=== PATIENT | female | born 1975 | race Hispanic/Latino ===

== ENCOUNTER 2017-09-29 12:54 | Day surgery (SDC) | payer BC ==
[~2017-09-29 12:54] MED LIST: Acetaminophen/HYDROcodone 325-5 MG Tab PO PRN; Bupivacaine 0.25% 10 ML SDV INJECT ONE; Bupivacaine 0.25% 10 ML SDV ONE; Lactated Ringers 1,000 ML IV SCH; ceFAZolin 2 GM in Premix Bag 1 BAG IV ONE
--- NOTE | 2017-09-29 13:38 | PCM.PREANE ---
Preanesthetic Assessment - Anesthesia/Transfusion/Family Hx Anesthesia History: Prior Anesthesia Without Reaction Other Type of Anesthesia Reaction Comment: Denies any known problem with anesthesia in the past Family History of Anesthesia Reaction: No Transfusion History: No Prior Transfusion(s) - Review of Systems General: No Symptoms Pulmonary: No Symptoms Cardiovascular: No Symptoms Gastrointestinal: No Symptoms Neurological: No Symptoms Other: Reports: None - Physical Assessment NPO Status Date: 09/28/17 Height: 1.68 m Weight: 73.482 kg ASA Class: 2 Mental Status: Alert & Oriented x3 Airway Class: Mallampati = 1 Dentition: Reports: Normal Dentition ROM/Head Extension: Full Lungs: Clear to Auscultation, Normal Respiratory Effort Cardiovascular: Regular Rate, Regular Rhythm - Lab Values: Laboratory Last Values Urine HCG, Qual NEGATIVE (NEGATIVE) 09/29/17 12:56 - Allergies Allergies/Adverse Reactions: Allergies Allergy/AdvReac Type Severity Reaction Status Date / Time ibuprofen Allergy Stomach Verified 09/24/17 09:50 Upset - Acknowledgements Anesthesia Type Planned: General Anesthesia, MAC (PMH: htn) Pt an Appropriate Candidate for the Planned Anesthesia: Yes Alternatives and Risks of Anesthesia Discussed w Pt/Guardian: Yes Pt/Guardian Understands and Agrees with Anesthesia Plan: Yes PreAnesthesia Questionnaire HEENT History: Reports: Other (See Below) Other HEENT History: wears glasses/contacts Cardiovascular History: Reports: Hypertension Other Cardiovascular History: on hctz and metopralol Respiratory History: Reports: None Gastrointestinal History: Reports: None Genitourinary History: Reports: None 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: Musculoskeletal History: Reports: None Neurological History: Reports: Other (See Below) Other Neuro History: Occasional headaches Psychiatric History: Reports: Anxiety, Other (See Below) Endocrine/Metabolic History: Reports: None Hematologic History: Reports: None Immunologic History: Reports: None Oncologic (Cancer) History: Reports: None Dermatologic History: Reports: None - Past Surgical History Head Surgeries/Procedures: Reports: None GI Surgical History: Reports: Colonoscopy, Other (See Below) Other GI Surgeries/Procedures: hemorroidectomy Female Surgical History: Reports: Breast Reduction, Tubal Ligation Other Female Surgeries/Procedures: breast reduction, breast revision Neurological Surgical History: Reports: C-Spine Other Neurological Surgeries/Procedures: neck fusion Musculoskeletal Surgical History: Reports: Other (See Below) Other Musculoskeletal Surgeries/Procedures:: Right Bunionectomy - SUBSTANCE USE Smoking Status *Q: Never Smoker Tobacco Use Within Last Twelve Months: No Second Hand Smoke Exposure: No Recreational Drug Use History: No - HOME MEDS Home Medications: Home Meds Hydrochlorothiazide 25 mg PO DAILY 09/20/15 [History] Metoprolol Tartrate 100 mg PO DAILY 09/20/15 [History] Calcium Carbonate/Vitamin D3 [Calcium 600 + Vit D Tablet] 1 tab PO DAILY [History] Cholecalciferol (Vitamin D3) [Vitamin D3] 1,000 mg PO DAILY 09/24/17 [History] Potassium Chloride 20 meq PO DAILY 09/24/17 [History] - CURRENT (IN HOUSE) MEDS Current Meds: Current Medications Hydrocodone Bitart/Acetaminophen ([place] 325-5 Mg) 1 tab PO Q4H PRN PRN Reason: Pain Lactated Ringer's (Ringers, Lactated) 1,000 mls @ 125 mls/hr IV ASDIRECTED [facility] Last Admin: 09/29/17 13:29 Dose: 125 mls/hr Discontinued Medications Bupivacaine HCl (Sensorcaine-Mpf 0.25%) 20 ml INJECT ONETIME ONE Stop: 09/28/17 12:40 Bupivacaine HCl (Sensorcaine-Mpf 0.25%) Confirm Administered Dose 20 ml .ROUTE .STK-MED ONE Stop: 09/29/17 10:58 Cefazolin Sodium/Dextrose 2 gm (/ Premix) 50 mls @ 100 mls/hr IV ONETIME ONE Stop: 09/29/17 12:29
[2017-09-29] MEDS ORDERED: fentaNYL 100 MCG/2 ML SDV ONE ×2 (15:07→15:58)
[2017-09-29] MEDS ORDERED: Propofol 200 MG/20 ML SDV ONE (15:07)
[2017-09-29] MEDS ORDERED: diphenhydrAMINE 50 MG/ML SDV ONE (15:08)
[2017-09-29] MEDS ORDERED: Lidocaine 2% 5 ML SDV ONE (15:08)
[2017-09-29] MEDS ORDERED: Midazolam 1 MG/ML 2 ML SDV ONE (15:08)
[2017-09-29] MEDS ORDERED: Ondansetron 4 MG/2 ML SDV ONE (15:08)
[2017-09-29] MEDS ORDERED: Phenylephrine/Normal Saline 100 MCG/ML 10 ML Syringe ONE (15:44)
[2017-09-29] MEDS ORDERED: Bupivacaine 0.25% 10 ML SDV ONE (15:52)
[2017-09-29] MEDS ORDERED: Triamcinolone Acetonide 40 MG/ML 1 ML MDV ONE (16:33)
[2017-09-29] MEDS: fentaNYL 100 MCG/2 ML SDV IVPUSH PRN ×4 (17:12→17:35)
--- NOTE | 2017-09-29 17:39 | PCM.POSTAN ---
POST ANESTHESIA ASSESSMENT - MENTAL STATUS Mental Status: Alert, Oriented - VITAL SIGNS Pulse Rate: 78 SaO2: 98 Resp Rate: 14 Blood Pressure: 103/65 - RESPIRATORY Respiratory Status: Respiratory Rate WNL, Airway Patent, O2 Saturation Stable - CARDIOVASCULAR CV Status: Pulse Rate WNL, Blood Pressure Stable - GASTROINTESTINAL GI Status: No Symptoms - PAIN Pain Score: 6 - POST OP HYDRATION Hydration Status: Adequate & Stable
[2017-09-29] MEDS ORDERED: HYDROmorphone 1 MG/ML Syringe IVPUSH ONE (18:46)
[2017-09-29 19:46] VITALS: BP 117/50
--- NOTE | 2017-09-29 21:25 | PCM.OPNOTE ---
- General Post-Op/Procedure Note Date of Surgery/Procedure: 09/29/17 Operative Procedure(s): bilateral breast scar revisions - excision of keloid scars with intermediate closure of 30cm total lenght. injection of left neck keloid with 0.5cc of kenalog 40. Pre Op Diagnosis: keloid breast and neck scars Post-Op Diagnosis: Same Anesthesia Technique: General LMA, Local Primary Surgeon: Abbi Hodge [employer] Electrical Person: Oly Vazquez Complications: None Condition: Good Free Text/Narrative:: Intake & Output 09/29/17 09/29/17 09/29/17 07:59 15:59 23:59 Intake Total 1600 Balance 1600
--- NOTE | 2017-10-04 17:02 | OR ---
SURGEON: ABBI HODGE MD DATE OF PROCEDURE: 09/29/2017 PREOPERATIVE DIAGNOSES: 1. Bilateral breasts keloid scars. 2. Left neck keloid scar. POSTOPERATIVE DIAGNOSES: 1. Bilateral breasts keloid scars. 2. Left neck keloid scar. PROCEDURES: 1. Bilateral breast scar revisions with excision of keloid scars and intermediate closure of 30 cm total length. 2. Injection of left neck keloid with 0.5 mL of Kenalog 40. PRIMARY SURGEON: Abbi Hodge MD. ENVIRONMENTAL PROGRAMS SPECIALIST: JORGE Madera. REASON ENVIRONMENTAL PROGRAMS SPECIALIST WAS NECESSARY: Reason for senior agricultural assistant is retraction and closure assistance. ANESTHESIA: General LMA. INDICATIONS: Ms. Dias is a 41-year-old female seen today in evaluation for refractory keloid scars. We have previously excised these and injected three times with Kenalog. Unfortunately, she re-developed the keloid and also has a keloid of the left neck from her cervical fusion. Risks and benefits of radiation versus repeat excision were discussed. She did meet with our radiation oncologist and discussed radiation with him as well. She would like to excise the breast scars and proceed with subsequent radiation. In addition, in the left neck area, she would like to inject this today. She does have symptom improvement initially with injection and would like to minimize cutting this out and minimize radiation to the neck area. I do understand this, and we will proceed with the procedure. PROCEDURE IN DETAIL: After informed consent was obtained and placed on the chart, the patient was brought to the operating theater and laid in a supine position. After adequate local general LMA anesthesia was obtained, the area was prepped and draped and a time-out was completed to confirm side and site. The area was prepped and draped, and then attention was paid to infiltration of local anesthesia. Attention was then paid to excision of the keloid scars using a #15 blade through the skin and subcutaneous tissues. The Bovie was then used for meticulous hemostasis, and the skin was re-approximated using deep 3-0 STRATAFIX Monocryl sutures and a running 4-0 subcuticular for the skin. Once all the keloids had been excised and meticulously hemostased, the lower part of the breast incision was dressed with the Prineo wound care closure system. The nipple-areolar complex was dressed with Steri-Strips. The patient tolerated this well and the wounds were dressed with fluffs, Kerlix, gauze, and tape. The patient tolerated this well, and all counts of needles were correct at the end of the case. FOLLOWUP INSTRUCTIONS: The patient will see us in 10-14 days or sooner if any problems, questions, or concerns. KENDRICK WRIGHT /[id number]
== END 2017-09-29 19:25 | disposition home or self-care (01) ==
LOC: MW.SDS 12:54 → MW.ICU 18:16 → MW.SDS 19:25
PROVIDERS: ATTEND Plastic Surgery
DX: L91.0 Hypertrophic scar (principal); Z88.8 Allergy status to other drugs, medicaments and biological substances
CPT/HCPCS: 11406; 11900; 12036; 81025; 88302; A9270; J1170; J1200; J2250; J2405; J3010; J3301; J7120; 00400; J2704

== ENCOUNTER 2020-04-24 07:36 | Day surgery (SDC) | payer BC ==
[~2020-04-24 07:36] MED LIST changes: -Acetaminophen/HYDROcodone 325-5 MG Tab PO PRN; -Bupivacaine 0.25% 10 ML SDV INJECT ONE; -Bupivacaine 0.25% 10 ML SDV ONE; +Lidocaine 2% 5 ML SDV ONE; +Propofol 200 MG/20 ML SDV ONE; -ceFAZolin 2 GM in Premix Bag 1 BAG IV ONE; +fentaNYL 100 MCG/2 ML SDV ONE
--- NOTE | 2020-04-24 08:24 | PCM.PREANE ---
Preanesthetic Assessment - Anesthesia/Transfusion/Family Hx Anesthesia History: Prior Anesthesia Without Reaction Other Type of Anesthesia Reaction Comment: Denies any known problem with anesthesia in the past Family History of Anesthesia Reaction: No Transfusion History: No Prior Transfusion(s) - Review of Systems General: No Symptoms Pulmonary: No Symptoms Cardiovascular: No Symptoms Neurological: No Symptoms Other: Reports: None - Physical Assessment NPO Status Date: 04/23/20 Vital Signs: Last Vital Signs Temp 97.9 F 04/24/20 07:50 Pulse 93 04/24/20 07:50 Resp 16 04/24/20 07:50 BP 108/69 04/24/20 07:50 Pulse Ox 94 L 04/24/20 07:50 Height: 5 ft 6 in Weight: 74.389 kg ASA Class: 2 Mental Status: Alert & Oriented x3 Airway Class: Mallampati = 2 Dentition: Reports: Normal Dentition ROM/Head Extension: Full Lungs: Clear to Auscultation, Normal Respiratory Effort Cardiovascular: Regular Rate, Regular Rhythm - Lab Values: Laboratory Last Values Urine HCG, Qual NEGATIVE (NEGATIVE) 04/24/20 06:55 - Allergies Allergies/Adverse Reactions: Allergies Allergy/AdvReac Type Severity Reaction Status Date / Time adhesive tape Allergy Blisters Verified 04/18/20 15:38 ibuprofen Allergy Abdominal Verified 04/18/20 15:37 Pain - Blood Blood Available: No - Anesthesia Plan Pre-Op Medication Ordered: None - Acknowledgements Anesthesia Type Planned: General Anesthesia Pt an Appropriate Candidate for the Planned Anesthesia: Yes Alternatives and Risks of Anesthesia Discussed w Pt/Guardian: Yes Pt/Guardian Understands and Agrees with Anesthesia Plan: Yes Additional Comments: PMH: htn, anxiet-no xanax today PLAN: tiva PreAnesthesia Questionnaire HEENT History: Reports: Other (See Below) Other HEENT History: wears glasses/contacts Cardiovascular History: Reports: Hypertension, Other (See Below) Other Cardiovascular History: recent complaints of "chest pIns" - had Holter monitor and was told it was "OK" Respiratory History: Reports: None Gastrointestinal History: Reports: None, Hemorrhoids Genitourinary History: Reports: None 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: Musculoskeletal History: Reports: Neck Pain, Chronic Neurological History: Reports: Other (See Below) Other Neuro History: Occasional headaches Psychiatric History: Reports: Anxiety, PTSD, Other (See Below) Other Psychiatric History: hx of night terrors Endocrine/Metabolic History: Reports: None Hematologic History: Reports: None, Iron Deficiency Immunologic History: Reports: None Oncologic (Cancer) History: Reports: None Dermatologic History: Reports: None - Past Surgical History Head Surgeries/Procedures: Reports: None HEENT Surgical History: Reports: Other (See Below) Other HEENT Surgeries/Procedures: has 1 upper dental implant GI Surgical History: Reports: Colonoscopy, Other (See Below) Other GI Surgeries/Procedures: hemorroidectomy Female Surgical History: Reports: Breast Reduction, Tubal Ligation Other Female Surgeries/Procedures: breast reduction, breast revision Neurological Surgical History: Reports: C-Spine Other Neurological Surgeries/Procedures: neck fusion- (C2-C6) Musculoskeletal Surgical History: Reports: Other (See Below) Other Musculoskeletal Surgeries/Procedures:: Right Bunionectomy - SUBSTANCE USE Smoking Status *Q: Never Smoker Recreational Drug Use History: No - HOME MEDS Home Medications: Home Meds Metoprolol Tartrate 100 mg PO QAM 09/20/15 [History] ALPRAZolam [Xanax] 1 mg PO BEDTIME 04/18/20 [History] Calcium Carbonate/Vitamin D3 [Calcium 600 + Vit D 400 Softgl] 1 cap PO DAILY 04/18/20 [History] Eszopiclone [Lunesta] 1 mg PO BEDTIME 04/18/20 [History] Iron 65 mg PO DAILY 04/18/20 [History] Prazosin HCl [Prazosin] 2 mg PO BEDTIME 04/18/20 [History] - CURRENT (IN HOUSE) MEDS Current Meds: Current Medications Lactated Ringer's (Ringers, Lactated) 1,000 mls @ 125 mls/hr IV ASDIRECTED [facility] Last Admin: 04/24/20 08:23 Dose: 125 mls/hr Documented by: Discontinued Medications Fentanyl (Sublimaze) Confirm Administered Dose 100 mcg .ROUTE .STK-MED ONE Stop: 04/24/20 07:09 Lidocaine (Xylocaine-Mpf 2%) Confirm Administered Dose 5 ml .ROUTE .STK-MED ONE Stop: 04/24/20 07:08 Propofol (Diprivan 20 Ml) Confirm Administered Dose 400 mg .ROUTE .STK-MED ONE Stop: 04/24/20 07:09
--- NOTE | 2020-04-24 09:39 | PCM.OPNOTE ---
- General Post-Op/Procedure Note Date of Surgery/Procedure: 04/24/20 Operative Procedure(s): colonoscopy w bx Findings: see [id number] Pre Op Diagnosis: change in bowel habit and hemorrhoid pain Post-Op Diagnosis: Same Anesthesia Technique: Moderate Sedation Primary Surgeon: Duncan Ulrich Pathology: polyp bx at 60cm and 15 cm Complications: None Condition: Good
[2020-04-24 09:55] VITALS: BP 111/74; PULSE 66
--- NOTE | 2020-04-24 13:11 | OR ---
SURGEON: Duncan Ulrich MD DATE OF PROCEDURE: 04/24/2020 PREOPERATIVE DIAGNOSES: Change in bowel habit, increased diarrhea, and hemorrhoidal pain. PROCEDURE PERFORMED: Colonoscopy with biopsy. DESCRIPTION OF PROCEDURE: The patient was taken to the endoscopy room. A time out was called, patient identified, and procedure identified. Diprivan was then administrated. Patient went from awake to sleep, hearing doctor talking or door closing is normal. Perineum inspection and digital examination were then performed. A well- lubricated colonoscope was gently inserted through the rectum, advanced past the rectosigmoid junction, the descending colon, splenic flexure, transverse colon, hepatic flexure, ascending colon, arrived to the cecum. Cecum was identified as dictated in the finding. Then the scope was carefully withdrawn while attention was paid to the mucosal surface for any abnormality. Air will be sucked out during the scope withdrawal. At the rectum, retroflexed to examine any rectal diseases, fistula or hemorrhoids. During mucosal examination, abnormality or polyp was noted; picture taken and biopsy performed. Patient tolerated procedure well. There were no intraoperative complications, and Dr. Ulrich was present throughout the whole procedure. FINDINGS: 1. The patient is easily sedated with FLEET MECHANIC and Diprivan, the patient is soundly snoring. 2. Bowel prep is average with some liquid stool. 3. Colon rather straightforward. Cecum indicated by ileocecal fold, one-to- one indentation, appendiceal orifice. Light emittance is not observed. Mucosa examined upon scope pulling out with constant irrigation. The patient has a mild diverticulosis on the left colon and no signs or symptoms of diverticulitis. The patient had two polyps, sessile, the first one is a 5 mm sessile polyp at distance 60 when scope pulling out and the other one is at distance 15 when scope pulling out, both are removed with cold biopsy forceps. Other than that, no other etiology. The patient has mild internal hemorrhoid, no external hemorrhoid. The patient would benefit from repeat colonoscopy 10 years from today or if clinically indicated otherwise or if the pathology of the polyp suggests otherwise. TREVON / KYLE /[id number]
--- NOTE | 2020-04-24 13:42 | PCM.POSTAN ---
POST ANESTHESIA ASSESSMENT - MENTAL STATUS Mental Status: Alert, Oriented - VITAL SIGNS Vital Signs: Last Vital Signs Temp 96.8 F L 04/24/20 09:50 Pulse 66 04/24/20 09:50 Resp 14 04/24/20 09:50 BP 111/74 04/24/20 09:50 Pulse Ox 99 04/24/20 09:50 - RESPIRATORY Respiratory Status: Respiratory Rate WNL, Airway Patent, O2 Saturation Stable - CARDIOVASCULAR CV Status: Pulse Rate WNL, Blood Pressure Stable - GASTROINTESTINAL GI Status: No Symptoms - POST OP HYDRATION Hydration Status: Adequate & Stable
--- NOTE | 2020-04-24 13:43 | PCM48HPAN ---
Post Anesthesia Note - EVALUATION WITHIN 48HRS OF ANESTHETIC Vital Signs in Normal Range: Yes Patient Participated in Evaluation: Yes Respiratory Function Stable: Yes Airway Patent: Yes Cardiovascular Function Stable: Yes Hydration Status Stable: Yes Pain Control Satisfactory: Yes Nausea and Vomiting Control Satisfactory: Yes Mental Status Recovered: Yes Vital Signs: Last Vital Signs Temp 96.8 F L 04/24/20 09:50 Pulse 66 04/24/20 09:50 Resp 14 04/24/20 09:50 BP 111/74 04/24/20 09:50 Pulse Ox 99 04/24/20 09:50
== END 2020-04-24 10:14 | disposition home or self-care (01) ==
LOC: MW.SDS 07:36
PROVIDERS: ATTEND Surgery
DX: K63.5 Polyp of colon (principal); K64.8 Other hemorrhoids; K57.30 Diverticulosis of large intestine without perforation or abscess without bleeding; I10 Essential (primary) hypertension; F41.9 Anxiety disorder, unspecified; Z79.899 Other long term (current) drug therapy; Z88.6 Allergy status to analgesic agent; Z98.890 Other specified postprocedural states
CPT/HCPCS: 45380; 81025; J2001; J2704; J3010; J7120

== ENCOUNTER 2021-02-13 19:22 | Inpatient (IN) | payer BC ==
[2021-02-13] MEDS ORDERED: Sodium Chloride 0.9% 2.5 ML Syringe FLUSH PRN (19:24)
[2021-02-13] MEDS ORDERED: methylPREDNISolone Sodium Succinate 125 MG/2 ML SDV ONE (19:45)
[2021-02-13] MEDS ORDERED: methylPREDNISolone Sodium Succinate 125 MG/2 ML SDV IVPUSH ONE (19:52)
--- NOTE | 2021-02-13 19:53 | EDM.PDOC ---
ED HPI GENERAL MEDICAL PROBLEM - General Chief Complaint: Respiratory Problem Stated Complaint: EMS ARRIVAL Time Seen by Provider: 02/13/21 19:45 Source of Information: Reports: Patient History Limitations: Reports: No Limitations - History of Present Illness INITIAL COMMENTS - FREE TEXT/NARRATIVE: HISTORY AND PHYSICAL: History of present illness: The patient is a 45-year-old female who presented to the emergency room via EMS with complaints of shortness of breath at home. EMS reports that her SPO2 was high 80s and her heart rate was 130-160 and the patient was very anxious. CMS a DuoNeb in route to emergency department. The patient is calm with an O2 sat of 95 while on DuoNeb at present. The patient has been on dexamethasone 6 mg twice a day since the . The patient's was diagnosed with COVID on February 04. Patient states she has had intermittent Covid-like symptoms since November 2019. She states this last episode has been going on for about 7 days. She has had a cough, shortness of breath, loss of smell, and intermittent diarrhea. She is also complaining of a migraine-like headache. She has photophobia denies phono sensitivity. She has a history of migraines. Patient denies any fever, chills, change in vision, syncope or near syncope. Denies any chest pain, back pain, shortness of breath or cough. Denies any abdominal pain, nausea, vomiting, diarrhea, constipation or dysuria. Has not noted any blood in urine or stool. Patient has been eating and drinking appropriately. Review of systems: As per history of present illness and below otherwise all systems reviewed and negative. Past medical history: As per history of present illness and as reviewed below otherwise noncontributory. Surgical history: As per history of present illness and as reviewed below otherwise noncontributory. Social history: See social history for further information Family history: As per history of present illness and as reviewed below otherwise noncontributory. Physical exam: General: Well developed and well nourished. Alert and orientated x 3. Nontoxic in appearance and in no acute distress. Vital signs are stable and have been reviewed by me. Nursing notes were reviewed. HEENT: Atraumatic, normocephalic, pupils equal and reactive bilaterally, negative for conjunctival pallor or scleral icterus, mucous membranes moist, TMs normal bilaterally, throat clear, neck supple, nontender, trachea midline. No drooling or trismus noted. No meningeal signs. No hot potato voice noted. Lungs: Clear to auscultation bilaterally. No wheezes, rales, or rhonchi. Chest nontender. Normal work of breathing, no accessory muscles used. Heart: S1S2, sinus tachycardia without overt murmur, gallops, or rubs. No JVD. No peripheral edema Abdomen: Soft, nondistended, nontender. Normoactive bowel sounds. Negative for masses or costovertebral tenderness. Skin: Intact, warm, dry. No lesions or rashes noted. Hematologic: No petechiae or purpra. Mucosa appropriate color and normal nail bed color and refill. Extremities: Atraumatic, moves all extremities per self without difficulty or deficits, negative for cords or calf pain. Neurovascular unremarkable. Neuro: Awake, alert, oriented. Cranial nerves II through XII unremarkable. Cerebellum unremarkable. Motor and sensory unremarkable throughout. Exam nonfocal. Psychiatric: Mood and affect are appropriate. Normal thought process. Answering questions appropriately. Notes: *This patient was seen and evaluated during the 2019 SARS-CoV-2 novel coronavirus pandemic period. Community viral transmission is ongoing at time of this encounter and the emergency department is operating under pandemic response procedures. After exam and discussion with the patient she is agreeable to labs, chest x- ray, medication. Post nebulizer the patient's SPO2 is hovering between 89 to 90%. Treated patient's headache with Reglan and Benadryl the patient is unable to take Toradol due to an adverse reaction to ibuprofen which caused some gastric bleeding. (20:00) patient's lactate is 9.3 and her WBC is 19.7. Fluids initiated. (21:08) Decreased O2 to 1 L SpO2 is 99 at present. (21:18) Turned O2 off the patient is resting with easy respirations. Her heart rate is in the 120s in Normal sinus rhythm. (22:30) repeat lactate after two and half liters of normal saline is 2.3. Attempted to get the patient to go to the restroom and she became short of breath with increased cough. Patient required to be placed back on 2 L of oxygen due to SPO2 88%. Patient had thought she would be able to go home but at this point does not feel as if she would be successful. (22:56) spoke with Dr. Delacruz regarding inpatient admission due to patient status. After discussion IV Rocephin and oral Zithromax will be given to the patient prior to admission. I have talked with the patient about today's findings, in addition to providing specific details for plan of care. Diagnostics: CBC, CMP, chest x-ray, lactate x2, UA, Blood cultures Therapeutics: Solu-Medrol 125 mg, Reglan, Benadryl, Impression: Lower respiratory infection, COVID-19, Hypoxia Plan: Admission Definitive disposition and diagnosis as appropriate pending reevaluation and review of above. - Related Data Allergies Allergy/AdvReac Type Severity Reaction Status Date / Time adhesive tape Allergy Blisters Verified 02/13/21 19:48 ibuprofen Allergy Abdominal Verified 02/13/21 19:48 Pain Home Meds: Home Meds Metoprolol Tartrate 100 mg PO QAM 09/20/15 [History] ALPRAZolam [Xanax] 1 mg PO BEDTIME 04/18/20 [History] Calcium Carbonate/Vitamin D3 [Calcium 600Mg-D3 400 Unit Sfgl] 1 cap PO DAILY 04/18/20 [History] Eszopiclone [Lunesta] 1 mg PO BEDTIME 04/18/20 [History] Iron 65 mg PO DAILY 04/18/20 [History] Prazosin HCl [Prazosin] 2 mg PO BEDTIME 04/18/20 [History] Past Medical History HEENT History: Reports: Other (See Below) Other HEENT History: wears glasses/contacts Cardiovascular History: Reports: Hypertension, Other (See Below) Other Cardiovascular History: recent complaints of "chest pIns" - had Holter monitor and was told it was "OK" Respiratory History: Reports: None Gastrointestinal History: Reports: None, Hemorrhoids Genitourinary History: Reports: None [employer] History: Musculoskeletal History: Reports: Neck Pain, Chronic Neurological History: Reports: Other (See Below) Other Neuro History: Occasional headaches Psychiatric History: Reports: Anxiety, PTSD, Other (See Below) Other Psychiatric History: hx of night terrors Endocrine/Metabolic History: Reports: None Hematologic History: Reports: None, Iron Deficiency Immunologic History: Reports: None Oncologic (Cancer) History: Reports: None Dermatologic History: Reports: None - Past Surgical History Head Surgeries/Procedures: Reports: None HEENT Surgical History: Reports: Other (See Below) Other HEENT Surgeries/Procedures: has 1 upper dental implant GI Surgical History: Reports: Colonoscopy, Other (See Below) Other GI Surgeries/Procedures: hemorroidectomy Female Surgical History: Reports: Breast Reduction, Tubal Ligation Other Female Surgeries/Procedures: breast reduction, breast revision Neurological Surgical History: Reports: C-Spine Other Neurological Surgeries/Procedures: neck fusion- (C2-C6) Musculoskeletal Surgical History: Reports: Other (See Below) Other Musculoskeletal Surgeries/Procedures:: Right Bunionectomy Social & Family History - Family History Family Medical History: No Pertinent Family History ED ROS GENERAL - Review of Systems Review Of Systems: Comprehensive ROS is negative, except as noted in HPI. ED EXAM, GENERAL - Physical Exam Exam: See Below (See dictation) Course - Vital Signs Last Recorded V/S: Last Vital Signs Temp 98 F 02/13/21 19:35 Pulse 150 H 02/13/21 20:15 Resp 28 H 02/13/21 20:15 BP 111/72 02/13/21 20:15 Pulse Ox 94 L 02/13/21 20:15 - Orders/Labs/Meds Orders: Active Orders 24 hr Category Date Time Status Admission Status [Patient Status] [ADT] Stat ADT 02/13/21 23:02 Active CULTURE BLOOD [BC] Stat Lab 02/13/21 20:10 Received CULTURE BLOOD [BC] Stat Lab 02/13/21 20:16 Results Sodium Chloride 0.9% [Normal Saline] 500 ml Med 02/13/21 22:15 Active IV .BOLUS Sodium Chloride 0.9% [Saline Flush] Med 02/13/21 19:24 Active 10 ml FLUSH ASDIRECTED PRN Sodium Chloride 0.9% [Saline Flush] Med 02/13/21 19:24 Active 2.5 ml FLUSH ASDIRECTED PRN cefTRIAXone [Rocephin] 1 gm Med 02/13/21 22:57 Active Sodium Chloride 0.9% [Normal Saline] 50 ml IV ONETIME Blood Culture x2 Reflex Set [OM.PC] Stat Oth 02/13/21 20:21 Ordered Saline Lock Insert [OM.PC] Stat Oth 02/13/21 19:24 Ordered Medication Orders Sodium Chloride (Normal Saline) 500 mls @ 999 mls/hr IV .BOLUS COCO Last Admin: 02/13/21 22:49 Dose: 999 mls/hr Documented by: BEBE Ceftriaxone Sodium 1 gm/ (Sodium Chloride) 50 mls @ 100 mls/hr IV ONETIME STA Stop: 02/13/21 23:26 Sodium Chloride (Sodium Chloride 0.9% 10 Ml Syringe) 10 ml FLUSH ASDIRECTED PRN PRN Reason: Keep Vein Open Sodium Chloride (Sodium Chloride 0.9% 2.5 Ml Syringe) 2.5 ml FLUSH ASDIRECTED PRN PRN Reason: Keep Vein Open Labs: Laboratory Tests 02/13/21 02/13/21 02/13/21 Range/Units 19:40 19:40 19:40 WBC 19.27 H (4.0-11.0) K/uL RBC 5.26 (4.30-5.90) M/uL Hgb 16.9 H (12.0-16.0) g/dL Hct 47.4 H (36.0-46.0) % MCV 90.1 (80.0-98.0) fL MCH 32.1 H (27.0-32.0) pg MCHC 35.7 (31.0-37.0) g/dL RDW Std Deviation 49.1 (28.0-62.0) fl RDW Coeff of Ovi 15 (11.0-15.0) % Plt Count 251 (150-400) K/uL MPV 12.20 H (7.40-12.00) fL Neut % (Auto) 84.2 H (48.0-80.0) % Lymph % (Auto) 9.5 L (16.0-40.0) % Perkins % (Auto) 6.1 (0.0-15.0) % Eos % (Auto) 0.1 (0.0-7.0) % Baso % (Auto) 0.1 (0.0-1.5) % Neut # (Auto) 16.2 H (1.4-5.7) K/uL Lymph # (Auto) 1.8 (0.6-2.4) K/uL Perkins # (Auto) 1.2 H (0.0-0.8) K/uL Eos # (Auto) 0.0 (0.0-0.7) K/uL Baso # (Auto) 0.0 (0.0-0.1) K/uL Nucleated RBC % 0.0 /100WBC Nucleated RBCs # 0 K/uL Lactate 9.3 H* (0.20-2.00) mmol/L Sodium 140 (136-145) mmol/L Potassium 3.7 (3.5-5.1) mmol/L Chloride 99 (98-107) mmol/L Carbon Dioxide 21.5 (21.0-32.0) mmol/L BUN 9 (7.0-18.0) mg/dL Creatinine 1.5 H (0.6-1.0) mg/dL Est Cr Clr Drug Dosing 43.87 mL/min Estimated GFR (MDRD) 45.3 ml/min Glucose 101 (74-106) mg/dL Calcium 9.0 (8.5-10.1) mg/dL Total Bilirubin 0.3 (0.2-1.0) mg/dL AST 23 (15-37) IU/L ALT 38 (14-63) IU/L Alkaline Phosphatase 88 (46-116) U/L Total Protein 7.6 (6.4-8.2) g/dL Albumin 3.1 L (3.4-5.0) g/dL Globulin 4.5 H (2.6-4.0) g/dL Albumin/Globulin Ratio 0.7 L (0.9-1.6) Urine Color Urine Appearance Urine pH (5.0-8.0) Ur Specific [place] (1.001-1.035) Urine Protein (NEGATIVE) mg/dL Urine Glucose (UA) (NEGATIVE) mg/dL Urine Ketones (NEGATIVE) mg/dL Urine Occult Blood (NEGATIVE) Urine Nitrite (NEGATIVE) Urine Bilirubin (NEGATIVE) Urine Urobilinogen (<2.0) EU/dL Ur Leukocyte Esterase (NEGATIVE) Influenza Type A RNA (NEGATIVE) Influenza Type B RNA (NEGATIVE) SARS-CoV-2 RNA (SHIVANI) (NEGATIVE) 02/13/21 02/13/21 02/13/21 Range/Units 19:40 22:20 22:43 WBC (4.0-11.0) K/uL RBC (4.30-5.90) M/uL Hgb (12.0-16.0) g/dL Hct (36.0-46.0) % MCV (80.0-98.0) fL MCH (27.0-32.0) pg MCHC (31.0-37.0) g/dL RDW Std Deviation (28.0-62.0) fl RDW Coeff of Ovi (11.0-15.0) % Plt Count (150-400) K/uL MPV (7.40-12.00) fL Neut % (Auto) (48.0-80.0) % Lymph % (Auto) (16.0-40.0) % Perkins % (Auto) (0.0-15.0) % Eos % (Auto) (0.0-7.0) % Baso % (Auto) (0.0-1.5) % Neut # (Auto) (1.4-5.7) K/uL Lymph # (Auto) (0.6-2.4) K/uL Perkins # (Auto) (0.0-0.8) K/uL Eos # (Auto) (0.0-0.7) K/uL Baso # (Auto) (0.0-0.1) K/uL Nucleated RBC % /100WBC Nucleated RBCs # K/uL Lactate 2.4 H* (0.20-2.00) mmol/L Sodium (136-145) mmol/L Potassium (3.5-5.1) mmol/L Chloride (98-107) mmol/L Carbon Dioxide (21.0-32.0) mmol/L BUN (7.0-18.0) mg/dL Creatinine (0.6-1.0) mg/dL Est Cr Clr Drug Dosing mL/min Estimated GFR (MDRD) ml/min Glucose (74-106) mg/dL Calcium (8.5-10.1) mg/dL Total Bilirubin (0.2-1.0) mg/dL AST (15-37) IU/L ALT (14-63) IU/L Alkaline Phosphatase (46-116) U/L Total Protein (6.4-8.2) g/dL Albumin (3.4-5.0) g/dL Globulin (2.6-4.0) g/dL Albumin/Globulin Ratio (0.9-1.6) Urine Color YELLOW Urine Appearance CLEAR Urine pH 5.5 (5.0-8.0) Ur Specific [place] <= 1.005 (1.001-1.035) Urine Protein NEGATIVE (NEGATIVE) mg/dL Urine Glucose (UA) NEGATIVE (NEGATIVE) mg/dL Urine Ketones NEGATIVE (NEGATIVE) mg/dL Urine Occult Blood NEGATIVE (NEGATIVE) Urine Nitrite NEGATIVE (NEGATIVE) Urine Bilirubin NEGATIVE (NEGATIVE) Urine Urobilinogen 0.2 (<2.0) EU/dL Ur Leukocyte Esterase NEGATIVE (NEGATIVE) Influenza Type A RNA NEGATIVE (NEGATIVE) Influenza Type B RNA NEGATIVE (NEGATIVE) SARS-CoV-2 RNA (SHIVANI) POSITIVE H (NEGATIVE) Meds: Medications Generic Name Dose Route Start Last Admin Trade Name Freq PRN Reason Stop Dose Admin Sodium Chloride 500 mls @ 999 mls/hr 02/13/21 22:15 02/13/21 22:49 Normal Saline IV 999 mls/hr .BOLUS COCO Administration Ceftriaxone Sodium 1 gm/ 50 mls @ 100 mls/hr 02/13/21 22:57 Sodium Chloride IV 02/13/21 23:26 ONETIME STA Sodium Chloride 10 ml 02/13/21 19:24 Sodium Chloride 0.9% 10 Ml Syringe FLUSH ASDIRECTED PRN Keep Vein Open Sodium Chloride 2.5 ml 02/13/21 19:24 Sodium Chloride 0.9% 2.5 Ml Syringe FLUSH ASDIRECTED PRN Keep Vein Open Discontinued Medications Generic Name Dose Route Start Last Admin Trade Name Sandra PRN Reason Stop Dose Admin Azithromycin 500 mg 02/13/21 22:58 Azithromycin 250 Mg Tab PO 02/13/21 22:59 Q24H STA Diphenhydramine HCl 50 mg 02/13/21 20:07 02/13/21 20:18 Diphenhydramine 50 Mg/Ml Sdv IVPUSH 02/13/21 20:08 50 mg ONETIME ONE Administration Sodium Chloride 1,000 mls @ 999 mls/hr 02/13/21 20:11 02/13/21 20:17 Normal Saline IV 02/13/21 21:11 999 mls/hr .BOLUS ONE Administration Sodium Chloride 1,000 mls @ 999 mls/hr 02/13/21 20:20 02/13/21 21:26 Normal Saline IV 02/13/21 21:20 999 mls/hr STAT ONE Administration Methylprednisolone Sodium Succinate Confirm 02/13/21 19:45 02/13/21 19:53 Methylprednisolone Sodium Succinate 125 Mg/2 Ml Sdv Administered 02/13/21 19:46 Not Given Dose 125 mg .ROUTE .STK-MED ONE Methylprednisolone Sodium Succinate 125 mg 02/13/21 19:52 02/13/21 19:53 Methylprednisolone Sodium Succinate 125 Mg/2 Ml Sdv IVPUSH 02/13/21 19:53 125 mg ONETIME ONE Administration Metoclopramide HCl 10 mg 02/13/21 20:09 02/13/21 20:23 Metoclopramide 10 Mg/2 Ml Sdv IVPUSH 02/13/21 20:10 10 mg ONETIME ONE Administration Departure - Departure Time of Disposition: 23:25 Disposition: Admitted As Inpatient 65 Condition: Good Clinical Impression: Lower resp. tract infection, COVID-19, Hypoxia - Discharge Information *PRESCRIPTION DRUG MONITORING PROGRAM REVIEWED*: Not Applicable *COPY OF PRESCRIPTION DRUG MONITORING REPORT IN PATIENT SPENCER: Not Applicable Referrals: Tomy Harp MD [Primary Care Provider] - Forms: ED Department Discharge Sepsis Event Note (ED) - Evaluation Sepsis Screening Result: No Definite Risk - Focused Exam Vital Signs: Vital Signs Temp Pulse Resp BP Pulse Ox 02/13/21 20:15 150 H 28 H 111/72 94 L 02/13/21 19:35 98 F 150 H 32 H 102/70 93 L - My Orders Last 24 Hours: My Active Orders 02/13/21 22:15 Sodium Chloride 0.9% [Normal Saline] 500 ml IV .BOLUS 02/13/21 22:57 cefTRIAXone [Rocephin] 1 gm Sodium Chloride 0.9% [Normal Saline] 50 ml IV ONETIME 02/13/21 23:02 Admission Status [Patient Status] [ADT] Stat - Assessment/Plan Last 24 Hours: My Active Orders 02/13/21 22:15 Sodium Chloride 0.9% [Normal Saline] 500 ml IV .BOLUS 02/13/21 22:57 cefTRIAXone [Rocephin] 1 gm Sodium Chloride 0.9% [Normal Saline] 50 ml IV ONETIME 02/13/21 23:02 Admission Status [Patient Status] [ADT] Stat
[2021-02-13] MEDS ORDERED: diphenhydrAMINE 50 MG/ML SDV IVPUSH ONE (20:07)
[2021-02-13] MEDS ORDERED: Metoclopramide 10 MG/2 ML SDV IVPUSH ONE (20:09)
[2021-02-13] MEDS ORDERED: Sodium Chloride 0.9% 1,000 ML IV ONE ×2 (20:11→20:20)
[2021-02-13 20:29] LABS: CARBON DIOXIDE,CO2 21.5 mmol/L (21.0-32.0); CORONAVIRUS COVID-19 NAA POSITIVE (NEGATIVE); INFLUENZA A NAA NEGATIVE (NEGATIVE); INFLUENZA B NAA NEGATIVE (NEGATIVE); POTASSIUM,K 3.7 mmol/L (3.5-5.1)
--- NOTE | 2021-02-13 20:52 | CR ---
INDICATION: Shortness of breath. TECHNIQUE: Chest 1 view. COMPARISON: None. FINDINGS: The cardiomediastinal silhouette size is normal. There is no focal pulmonary opacity, pleural effusion or pneumothorax. Cervical spine fusion hardware is noted. The visualized osseous structures are unremarkable for age. Impression: No acute cardiopulmonary abnormality. Dictated by Rachel Marte MD @ 02/13/2021 8:50:[address] Rachel Marte @ Feb 13 2021 8:50PM
[2021-02-13] MEDS ORDERED: Sodium Chloride 0.9% 500 ML IV SCH (22:15)
[2021-02-13] MEDS ORDERED: cefTRIAXone 1 GM in Sodium Chloride 0.9% 50 ML IV STA (22:57)
[2021-02-13] MEDS ORDERED: Azithromycin 250 MG Tab PO STA (22:58)
[2021-02-13] MEDS ORDERED: cefTRIAXone 1 GM in Premix Bag 1 BAG IV ONE (23:36)
--- NOTE | 2021-02-14 02:43 | PCM.HP.2 ---
H&P History of Present Illness - General Date of Service: 02/14/21 Admit Problem/Dx: Admission Diagnosis/Problem Admission Diagnosis/Problem Lower respiratory tract infection - History of Present Illness Initial Comments - Free Text/Narative: 45 yo female with pmh of PTSD, depression, tachycardia who presented to the ED with complaints of shortness of breath. PAtient reports having COVID like symptoms since November of 2019 when she came back from a trip to [facility]. Patient reports she has been tested seven different times and it has been negative. Patient reports Her tested postive February 04. At that time she reported symptoms of loss of smell, nausea, vomiting and diarrhea. She was given a prescrition of dexamethason to take twice a day for ten days that ran out today. Patient reports this week she has gotten progressively short of breath and she wasn't able to breath anymore so she called EMS. EMS noted her HR to be 160s and satting in the upper 80s. In the ED she was requring 2 L NC but she was not tachycardic. LActic acid was 9, WBC of 19,270, and Creatinine of 1.5. She was given 2.5 liters on NS, solumedrol, Rocephin, and Azithromycin. - Related Data Allergies/Adverse Reactions: Allergies Allergy/AdvReac Type Severity Reaction Status Date / Time adhesive tape Allergy Blisters Verified 02/14/21 00:06 ibuprofen Allergy Abdominal Verified 02/14/21 00:06 Pain NSAIDS (Non-Steroidal Allergy Bleeding Verified 02/14/21 00:06 Anti-Inflamma Home Medications: Home Meds Metoprolol Tartrate 100 mg PO QAM 09/20/15 [History] Calcium Carbonate/Vitamin D3 [Calcium 600Mg-D3 400 Unit Sfgl] 1 cap PO DAILY 04/18/20 [History] Iron 65 mg PO DAILY PRN 04/18/20 [History] ALPRAZolam [Alprazolam] 0.5 mg PO BID 02/14/21 [History] ALPRAZolam [Alprazolam] 1 mg PO BEDTIME 02/14/21 [History] Eszopiclone [Lunesta] 2 mg PO BEDTIME 02/14/21 [History] Prazosin HCl [Prazosin] 15 mg PO BEDTIME 02/14/21 [History] Past Medical History HEENT History: Reports: Other (See Below) Other HEENT History: wears glasses/contacts Cardiovascular History: Reports: Hypertension, Other (See Below) Other Cardiovascular History: recent complaints of "chest pIns" - had Holter monitor and was told it was "OK" Respiratory History: Reports: None Gastrointestinal History: Reports: Hemorrhoids Genitourinary History: Reports: None [employer]PER[employer]OR [employer] History: Reports: None Musculoskeletal History: Reports: Neck Pain, Chronic Neurological History: Reports: Other (See Below) Other Neuro History: Occasional headaches Psychiatric History: Reports: Anxiety, Depression, PTSD, Other (See Below) Other Psychiatric History: hx of night terrors. Major depressive disorder. Endocrine/Metabolic History: Reports: None Insulin Pump Model and Patented Hogshead Assembler: None Hematologic History: Reports: None, Iron Deficiency Immunologic History: Reports: None Oncologic (Cancer) History: Reports: None Dermatologic History: Reports: None - Infectious Disease History Infectious Disease History: Reports: Other (See Below) Other Infectious Disease History: Covid-19 - Past Surgical History Head Surgeries/Procedures: Reports: None HEENT Surgical History: Reports: Other (See Below) Other HEENT Surgeries/Procedures: has 1 upper dental implant GI Surgical History: Reports: Colonoscopy, Other (See Below) Other GI Surgeries/Procedures: hemorroidectomy Female Surgical History: Reports: Breast Reduction, Tubal Ligation Other Female Surgeries/Procedures: breast reduction, breast revision Neurological Surgical History: Reports: C-Spine Other Neurological Surgeries/Procedures: neck fusion- (C2-C6) titanium plate Musculoskeletal Surgical History: Reports: Other (See Below) Other Musculoskeletal Surgeries/Procedures:: Right Bunionectomy Social & Family History - Family History Family Medical History: No Pertinent Family History - Tobacco Use Tobacco Use Status *Q: Never Tobacco User Second Hand Smoke Exposure: No - Caffeine Use Caffeine Use: Reports: None - Recreational Drug Use Recreational Drug Use: No H&P Review of Systems - Review of Systems: Review Of Systems: Comprehensive ROS is negative, except as noted in HPI. Exam - Exam Exam: See Below - Vital Signs Vital Signs: Last Vital Signs Temp 36.5 C 02/13/21 23:44 Pulse 89 02/14/21 01:50 Resp 20 02/14/21 01:50 BP 114/81 02/13/21 23:44 Pulse Ox 92 L 02/14/21 01:50 Weight: 83.416 kg - Exam General: Alert, Oriented HEENT: Mucosa Moist & [place] Neck: Supple Lungs: Clear to Auscultation, Normal Respiratory Effort Cardiovascular: Regular Rate, Regular Rhythm GI/Abdominal Exam: Soft, Non-Tender, No Distention Extremities: Non-Tender, No Pedal Edema Skin: Warm, Dry, Intact - Patient Data Lab Results Last 24 hrs: Laboratory Results - last 24 hr 02/13/21 02/13/21 02/13/21 Range/Units 19:40 19:40 19:40 WBC 19.27 H (4.0-11.0) K/uL RBC 5.26 (4.30-5.90) M/uL Hgb 16.9 H (12.0-16.0) g/dL Hct 47.4 H (36.0-46.0) % MCV 90.1 (80.0-98.0) fL MCH 32.1 H (27.0-32.0) pg MCHC 35.7 (31.0-37.0) g/dL RDW Std Deviation 49.1 (28.0-62.0) fl RDW Coeff of Ovi 15 (11.0-15.0) % Plt Count 251 (150-400) K/uL MPV 12.20 H (7.40-12.00) fL Neut % (Auto) 84.2 H (48.0-80.0) % Lymph % (Auto) 9.5 L (16.0-40.0) % [place] % (Auto) 6.1 (0.0-15.0) % Eos % (Auto) 0.1 (0.0-7.0) % Baso % (Auto) 0.1 (0.0-1.5) % Neut # (Auto) 16.2 H (1.4-5.7) K/uL Lymph # (Auto) 1.8 (0.6-2.4) K/uL [place] # (Auto) 1.2 H (0.0-0.8) K/uL Eos # (Auto) 0.0 (0.0-0.7) K/uL Baso # (Auto) 0.0 (0.0-0.1) K/uL Nucleated RBC % 0.0 /100WBC Nucleated RBCs # 0 K/uL Lactate 9.3 H* (0.20-2.00) mmol/L Sodium 140 (136-145) mmol/L Potassium 3.7 (3.5-5.1) mmol/L Chloride 99 (98-107) mmol/L Carbon Dioxide 21.5 (21.0-32.0) mmol/L BUN 9 (7.0-18.0) mg/dL Creatinine 1.5 H (0.6-1.0) mg/dL Est Cr Clr Drug Dosing 43.87 mL/min Estimated GFR (MDRD) 45.3 ml/min Glucose 101 (74-106) mg/dL Calcium 9.0 (8.5-10.1) mg/dL Total Bilirubin 0.3 (0.2-1.0) mg/dL AST 23 (15-37) IU/L ALT 38 (14-63) IU/L Alkaline Phosphatase 88 (46-116) U/L Total Protein 7.6 (6.4-8.2) g/dL Albumin 3.1 L (3.4-5.0) g/dL Globulin 4.5 H (2.6-4.0) g/dL Albumin/Globulin Ratio 0.7 L (0.9-1.6) Urine Color Urine Appearance Urine pH (5.0-8.0) Ur Specific [place] (1.001-1.035) Urine Protein (NEGATIVE) mg/dL Urine Glucose (UA) (NEGATIVE) mg/dL Urine Ketones (NEGATIVE) mg/dL Urine Occult Blood (NEGATIVE) Urine Nitrite (NEGATIVE) Urine Bilirubin (NEGATIVE) Urine Urobilinogen (<2.0) EU/dL Ur Leukocyte Esterase (NEGATIVE) Influenza Type A RNA (NEGATIVE) Influenza Type B RNA (NEGATIVE) SARS-CoV-2 RNA (SHIVANI) (NEGATIVE) 02/13/21 02/13/21 02/13/21 Range/Units 19:40 22:20 22:43 WBC (4.0-11.0) K/uL RBC (4.30-5.90) M/uL Hgb (12.0-16.0) g/dL Hct (36.0-46.0) % MCV (80.0-98.0) fL MCH (27.0-32.0) pg MCHC (31.0-37.0) g/dL RDW Std Deviation (28.0-62.0) fl RDW Coeff of [place]vi (11.0-15.0) % Plt Count (150-400) K/uL MPV (7.40-12.00) fL Neut % (Auto) (48.0-80.0) % Lymph % (Auto) (16.0-40.0) % [place] % (Auto) (0.0-15.0) % Eos % (Auto) (0.0-7.0) % Baso % (Auto) (0.0-1.5) % Neut # (Auto) (1.4-5.7) K/uL Lymph # (Auto) (0.6-2.4) K/uL [place] # (Auto) (0.0-0.8) K/uL Eos # (Auto) (0.0-0.7) K/uL Baso # (Auto) (0.0-0.1) K/uL Nucleated RBC % /100WBC Nucleated RBCs # K/uL Lactate 2.4 H* (0.20-2.00) mmol/L Sodium (136-145) mmol/L Potassium (3.5-5.1) mmol/L Chloride (98-107) mmol/L Carbon Dioxide (21.0-32.0) mmol/L BUN (7.0-18.0) mg/dL Creatinine (0.6-1.0) mg/dL Est Cr Clr Drug Dosing mL/min Estimated GFR (MDRD) ml/min Glucose (74-106) mg/dL Calcium (8.5-10.1) mg/dL Total Bilirubin (0.2-1.0) mg/dL AST (15-37) IU/L ALT (14-63) IU/L Alkaline Phosphatase (46-116) U/L Total Protein (6.4-8.2) g/dL Albumin (3.4-5.0) g/dL Globulin (2.6-4.0) g/dL Albumin/Globulin Ratio (0.9-1.6) Urine Color YELLOW Urine Appearance CLEAR Urine pH 5.5 (5.0-8.0) Ur Specific [place] <= 1.005 (1.001-1.035) Urine Protein NEGATIVE (NEGATIVE) mg/dL Urine Glucose (UA) NEGATIVE (NEGATIVE) mg/dL Urine Ketones NEGATIVE (NEGATIVE) mg/dL Urine Occult Blood NEGATIVE (NEGATIVE) Urine Nitrite NEGATIVE (NEGATIVE) Urine Bilirubin NEGATIVE (NEGATIVE) Urine Urobilinogen 0.2 (<2.0) EU/dL Ur Leukocyte Esterase NEGATIVE (NEGATIVE) Influenza Type A RNA NEGATIVE (NEGATIVE) Influenza Type B RNA NEGATIVE (NEGATIVE) SARS-CoV-2 RNA (SHIVANI) POSITIVE H (NEGATIVE) Result Diagrams: 02/14/21 03:40 02/13/21 19:40 Samuel Results Last 24 hrs: Microbiology 02/13/21 20:16 Anaerobic Blood Culture - Final Blood - Venous - Lab Draw Sepsis Event Note - Evaluation Sepsis Screening Result: No Definite Risk - Focused Exam Vital Signs: Vital Signs Temp Pulse Resp BP Pulse Ox 02/14/21 01:50 89 20 92 L 02/14/21 00:46 82 22 H 93 L 02/13/21 23:44 36.5 C 96 24 H 114/81 98 02/13/21 23:28 36.3 C 114 H 25 H 117/81 94 L 02/13/21 20:15 150 H 28 H 111/72 94 L 02/13/21 19:35 36.6 C 150 H 32 H 102/70 93 L Problem List Initiated/Reviewed/Updated: Yes Orders Last 24hrs: Active Orders 24 hr Category Date Time Status Admission Status [Patient Status] [ADT] Stat ADT 02/13/21 23:02 Active Telemetry Monitoring [Cardiac Monitoring] [RC] . Care 02/14/21 01:54 Active DIRECTED Regular Diet [DIET] Diet 02/14/21 Breakfast Active BASIC METABOLIC PANEL,BMP [CHEM] Routine Lab 02/14/21 05:11 Ordered CBC WITH AUTO DIFF [HEME] Routine Lab 02/14/21 05:11 Ordered CULTURE BLOOD [BC] Stat Lab 02/13/21 20:10 Received CULTURE BLOOD [BC] Stat Lab 02/13/21 20:16 Results LACTIC ACID,WHOLE BLOOD [BG] Routine Lab 02/14/21 04:00 Ordered Sodium Chloride 0.9% [Normal Saline] 500 ml Med 02/13/21 22:15 Active IV .BOLUS Sodium Chloride 0.9% [Saline Flush] Med 02/13/21 19:24 Active 10 ml FLUSH ASDIRECTED PRN Sodium Chloride 0.9% [Saline Flush] Med 02/13/21 19:24 Active 2.5 ml FLUSH ASDIRECTED PRN Blood Culture x2 Reflex Set [OM.PC] Stat Oth 02/13/21 20:21 Ordered Saline Lock Insert [OM.PC] Stat Oth 02/13/21 19:24 Ordered Medication Orders Sodium Chloride (Normal Saline) 500 mls @ 999 mls/hr IV .BOLUS COCO Last Admin: 02/13/21 22:49 Dose: 999 mls/hr Documented by: BEBE Sodium Chloride (Sodium Chloride 0.9% 10 Ml Syringe) 10 ml FLUSH ASDIRECTED PRN PRN Reason: Keep Vein Open Sodium Chloride (Sodium Chloride 0.9% 2.5 Ml Syringe) 2.5 ml FLUSH ASDIRECTED PRN PRN Reason: Keep Vein Open Assessment/Plan Comment:: 45 yo female admitted for concerns of COVID or respiratory tract infection. She has sirs criteria but does not appear septic currently. She has been weened off oxygen We will repeat BMP and if creatinine has improved will order CT PE scan.
[2021-02-14 04:04] LABS: CARBON DIOXIDE,CO2 26.9 mmol/L (21.0-32.0); POTASSIUM,K 4.1 mmol/L (3.5-5.1)
[2021-02-14] MEDS: Heparin Sodium 5,000 Units/ML Vial SUBCUT SCH ×3 (04:05→20:55)
[2021-02-14] MEDS: Metoprolol Tartrate 50 MG Tab PO SCH (08:14)
[2021-02-14 10:36] LABS: CARBON DIOXIDE,CO2 25.4 mmol/L (21.0-32.0); POTASSIUM,K 3.7 mmol/L (3.5-5.1)
[2021-02-14] MEDS ORDERED: Sodium Chloride 0.9% 1,000 ML IV ONE (12:00)
[2021-02-14] MEDS ORDERED: Iopamidol 755 MG/ML 500 ML Multipack Bottle IVPUSH ONE (13:01)
[2021-02-14] MEDS: Acetaminophen 325 MG Tab PO PRN ×2 (13:26→23:17)
--- NOTE | 2021-02-14 13:33 | CT ---
INDICATION: Worsening dyspnea for the last 1 month; COVID-19 positive. COMPARISON: Chest radiograph February 13, 2021. TECHNIQUE: CT chest with intravenous contrast; coronal and sagittal reformats. FINDINGS: This study is not quite optimal to rule out subtle pulmonary thromboemboli in the 3rd and 4th order branches because of limitation of the IV. No major pulmonary thromboemboli identified. Extensive patchy areas of alveolar consolidation throughout both lungs diagnostic of COVID-19 pneumonia. High dense material identified within the pulmonary parenchyma in both lower lobes; rule out chronic aspiration. No evidence of pleural effusion. No abnormal mediastinal or hilar lymphadenopathy. Limited CT through the upper abdomen is unremarkable. IMPRESSION: 1. No gross pulmonary thromboemboli. 2. Small pulmonary thromboemboli in the 3rd and 4th order branches cannot be ruled out. 3. Extensive patchy areas of alveolar consolidation both lungs; diagnostic of COVID-19 pneumonia. 4. High dense material identified within the infiltrates in the right lower lobe and left lower lobe; rule out chronic aspiration. Please note that all CT scans at this facility use dose modulation, iterative reconstruction, and/or weight-based dosing when appropriate to reduce radiation dose to as low as reasonably achievable. Dictated by Lino Lin MD @ 02/14/2021 1:32:[address] Lino Lin @ Feb 14 2021 1:32PM
[2021-02-14] MEDS ORDERED: Dexamethasone 4 MG Tab PO SCH (19:00)
[2021-02-14] MEDS: Albuterol/Ipratropium 4 GM Inhalation Spray INH PRN (21:17)
[2021-02-14] MEDS: Azithromycin 250 MG Tab PO SCH (23:16)
[2021-02-14] MEDS: cefTRIAXone 1 GM in Premix Bag 1 BAG IV SCH (23:23)
[2021-02-15] MEDS ORDERED: Lactated Ringers 500 ML IV SCH (01:30)
[2021-02-15] MEDS ORDERED: Metoprolol Tartrate 50 MG Tab PO ONE (03:31)
[2021-02-15] MEDS: Heparin Sodium 5,000 Units/ML Vial SUBCUT SCH ×3 (03:41→20:47)
[2021-02-15 07:01] LABS: CARBON DIOXIDE,CO2 25.6 mmol/L (21.0-32.0); POTASSIUM,K 3.1 mmol/L (3.5-5.1)
[2021-02-15] MEDS: Sodium Chloride 0.9% 10 ML Syringe FLUSH PRN (09:00)
[2021-02-15] MEDS: Metoprolol Tartrate 50 MG Tab PO SCH (09:00)
[2021-02-15] MEDS ORDERED: Potassium Chloride 20 MEQ Tab.ER PO ONE ×2 (09:45→13:00)
[2021-02-15] MEDS ORDERED: REMDESIVIR 200 MG in Sodium Chloride 0.9% 250 ML IV ONE (09:45)
[2021-02-15] MEDS: Dexamethasone 4 MG Tab PO SCH (12:43)
--- NOTE | 2021-02-15 12:53 | PCM.PN ---
- General Info Date of Service: 02/15/21 Admission Dx/Problem (Free Text): Admission Diagnosis/Problem Admission Diagnosis/Problem Lower respiratory tract infection Subjective Update: seen at bedside, has somenech soreness, feels better but still weak, requiring 2 lts of oxygen - Review of Systems General: Reports: Weakness, Fatigue, Malaise. Denies: Fever Pulmonary: Reports: Shortness of Breath, Cough. Denies: Pleuritic Chest Pain Cardiovascular: Denies: Chest Pain, Palpitations, Dyspnea on Exertion Gastrointestinal: Denies: Abdominal Pain, Constipation Genitourinary: Denies: Dysuria, Frequency, Burning Musculoskeletal: Reports: Neck Pain, Shoulder Pain. Denies: Arm Pain, Hand Pain Skin: Denies: Jaundice, Mottled Psychiatric: Reports: Anxiety - Patient Data Vitals - Most Recent: Last Vital Signs Temp 36.9 C 02/15/21 08:00 Pulse 106 H 02/15/21 09:00 Resp 20 02/15/21 08:00 BP 119/69 02/15/21 09:00 Pulse Ox 93 L 02/15/21 08:00 Weight - Most Recent: 83.416 kg I&O - Last 24 Hours: Intake & Output 02/14/21 02/15/21 02/15/21 22:59 06:59 14:59 Intake Total 1960 2050 Output Total 1750 1600 Balance 210 450 Lab Results Last 24 Hours: Laboratory Results - last 24 hr 02/14/21 02/14/21 02/15/21 Range/Units 16:09 20:30 06:15 WBC 18.48 H (4.0-11.0) K/uL RBC 3.99 L (4.30-5.90) M/uL Hgb 12.4 (12.0-16.0) g/dL Hct 35.9 L (36.0-46.0) % MCV 90.0 (80.0-98.0) fL MCH 31.1 (27.0-32.0) pg MCHC 34.5 (31.0-37.0) g/dL RDW Std Deviation 48.2 (28.0-62.0) fl RDW Coeff of Ovi 15 (11.0-15.0) % Plt Count 136 L (150-400) K/uL MPV 11.60 (7.40-12.00) fL Neut % (Auto) 89.7 H (48.0-80.0) % Lymph % (Auto) 6.2 L (16.0-40.0) % [place] % (Auto) 3.9 (0.0-15.0) % Eos % (Auto) 0.1 (0.0-7.0) % Baso % (Auto) 0.1 (0.0-1.5) % Neut # (Auto) 16.6 H (1.4-5.7) K/uL Lymph # (Auto) 1.2 (0.6-2.4) K/uL [place] # (Auto) 0.7 (0.0-0.8) K/uL Eos # (Auto) 0.0 (0.0-0.7) K/uL Baso # (Auto) 0.0 (0.0-0.1) K/uL Nucleated RBC % 0.0 /100WBC Nucleated RBCs # 0 K/uL Lactate 2.8 H* 2.0 (0.20-2.00) mmol/L Sodium (136-145) mmol/L Potassium (3.5-5.1) mmol/L Chloride (98-107) mmol/L Carbon Dioxide (21.0-32.0) mmol/L BUN (7.0-18.0) mg/dL Creatinine (0.6-1.0) mg/dL Est Cr Clr Drug Dosing mL/min Estimated GFR (MDRD) ml/min Glucose (74-106) mg/dL Calcium (8.5-10.1) mg/dL Total Bilirubin (0.2-1.0) mg/dL AST (15-37) IU/L ALT (14-63) IU/L Alkaline Phosphatase (46-116) U/L Total Protein (6.4-8.2) g/dL Albumin (3.4-5.0) g/dL Globulin (2.6-4.0) g/dL Albumin/Globulin Ratio (0.9-1.6) 02/15/21 Range/Units 06:15 WBC (4.0-11.0) K/uL RBC (4.30-5.90) M/uL Hgb (12.0-16.0) g/dL Hct (36.0-46.0) % MCV (80.0-98.0) fL MCH (27.0-32.0) pg MCHC (31.0-37.0) g/dL RDW Std Deviation (28.0-62.0) fl RDW Coeff of Ovi (11.0-15.0) % Plt Count (150-400) K/uL MPV (7.40-12.00) fL Neut % (Auto) (48.0-80.0) % Lymph % (Auto) (16.0-40.0) % [place] % (Auto) (0.0-15.0) % Eos % (Auto) (0.0-7.0) % Baso % (Auto) (0.0-1.5) % Neut # (Auto) (1.4-5.7) K/uL Lymph # (Auto) (0.6-2.4) K/uL [place] # (Auto) (0.0-0.8) K/uL Eos # (Auto) (0.0-0.7) K/uL Baso # (Auto) (0.0-0.1) K/uL Nucleated RBC % /100WBC Nucleated RBCs # K/uL Lactate (0.20-2.00) mmol/L Sodium 138 (136-145) mmol/L Potassium 3.1 L (3.5-5.1) mmol/L Chloride 104 (98-107) mmol/L Carbon Dioxide 25.6 (21.0-32.0) mmol/L BUN 8 (7.0-18.0) mg/dL Creatinine 1.2 H (0.6-1.0) mg/dL Est Cr Clr Drug Dosing 54.84 mL/min Estimated GFR (MDRD) 58.6 ml/min Glucose 126 H (74-106) mg/dL Calcium 7.7 L (8.5-10.1) mg/dL Total Bilirubin 0.2 (0.2-1.0) mg/dL AST 17 (15-37) IU/L ALT 25 (14-63) IU/L Alkaline Phosphatase 61 (46-116) U/L Total Protein 5.3 L (6.4-8.2) g/dL Albumin 1.9 L (3.4-5.0) g/dL Globulin 3.4 (2.6-4.0) g/dL Albumin/Globulin Ratio 0.6 L (0.9-1.6) Samuel Results Last 24 Hours: Microbiology 02/13/21 20:16 Aerobic Blood Culture - Preliminary Blood - Venous - Lab Draw NO GROWTH AFTER 1 DAY Anaerobic Blood Culture - Final 02/13/21 20:10 Aerobic Blood Culture - Preliminary Blood - Venous NO GROWTH AFTER 1 DAY Anaerobic Blood Culture - Preliminary NO GROWTH AFTER 1 DAY Med Orders - Current: Current Medications Acetaminophen (Acetaminophen 325 Mg Tab) 650 mg PO Q6H PRN PRN Reason: Pain Last Admin: 02/14/21 23:17 Dose: 650 mg Documented by: Albuterol/Ipratropium (Albuterol/Ipratropium 4 Gm Inhalation Powers) 0 gm INH Q4H PRN PRN Reason: Dyspnea Last Admin: 02/14/21 21:17 Dose: 1 puff Documented by: Azithromycin (Azithromycin 250 Mg Tab) 500 mg PO Q24H [facility] Last Admin: 02/14/21 23:16 Dose: 500 mg Documented by: Dexamethasone (Dexamethasone 4 Mg Tab) 6 mg PO DAILY [facility] Last Admin: 02/15/21 12:43 Dose: 6 mg Documented by: Heparin Sodium (Porcine) (Heparin Sodium 5,000 Units/Ml Vial) 5,000 units SUBCUT Q8H [facility] Last Admin: 02/15/21 12:44 Dose: 5,000 units Documented by: Ceftriaxone Sodium/Dextrose 1 (gm/ Premix) 50 mls @ 100 mls/hr IV Q24H [facility] Last Admin: 02/14/21 23:23 Dose: 100 mls/hr Documented by: Lactated Ringer's (Ringers, Lactated) 500 mls @ 125 mls/hr IV ASDIRECTED [facility] Last Admin: 02/15/21 01:31 Dose: 125 mls/hr Documented by: Remdesivir 100 mg/ Sodium (Chloride) 100 mls @ 100 mls/hr IV Q24H [facility] Stop: 02/19/21 10:29 Metoprolol Tartrate (Metoprolol Tartrate 50 Mg Tab) 100 mg PO QAM [facility] Last Admin: 02/15/21 09:00 Dose: 100 mg Documented by: Prazosin 5mg 3 each PO BEDTIME [facility] Last Admin: 02/14/21 20:58 Dose: 3 each Documented by: Sodium Chloride (Sodium Chloride 0.9% 10 Ml Syringe) 10 ml FLUSH ASDIRECTED PRN PRN Reason: Keep Vein Open Last Admin: 02/15/21 09:00 Dose: 10 ml Documented by: Sodium Chloride (Sodium Chloride 0.9% 2.5 Ml Syringe) 2.5 ml FLUSH ASDIRECTED PRN PRN Reason: Keep Vein Open Discontinued Medications Azithromycin (Azithromycin 250 Mg Tab) 500 mg PO Q24H [facility] Stop: 02/13/21 22:59 Last Admin: 02/13/21 23:43 Dose: 500 mg Documented by: Dexamethasone (Dexamethasone 4 Mg Tab) 6 mg PO Q24H [facility] Diphenhydramine HCl (Diphenhydramine 50 Mg/Ml Sdv) 50 mg IVPUSH ONETIME ONE Stop: 02/13/21 20:08 Last Admin: 02/13/21 20:18 Dose: 50 mg Documented by: Sodium Chloride (Normal Saline) 1,000 mls @ 999 mls/hr IV .BOLUS ONE Stop: 02/13/21 21:11 Last Admin: 02/13/21 20:17 Dose: 999 mls/hr Documented by: Sodium Chloride (Normal Saline) 1,000 mls @ 999 mls/hr IV STAT ONE Stop: 02/13/21 21:20 Last Admin: 02/13/21 21:26 Dose: 999 mls/hr Documented by: Sodium Chloride (Normal Saline) 500 mls @ 999 mls/hr IV .BOLUS [facility] Last Admin: 02/13/21 22:49 Dose: 999 mls/hr Documented by: Ceftriaxone Sodium 1 gm/ (Sodium Chloride) 50 mls @ 100 mls/hr IV ONETIME STA Stop: 02/13/21 23:26 Last Admin: 02/13/21 23:44 Dose: Not Given Documented by: Ceftriaxone Sodium/Dextrose 1 (gm/ Premix) 50 mls @ 100 mls/hr IV ONETIME ONE Stop: 02/14/21 00:05 Last Admin: 02/13/21 23:43 Dose: 100 mls/hr Documented by: Sodium Chloride (Normal Saline) 1,000 mls @ 999 mls/hr IV .Bolus ONE Stop: 02/14/21 13:00 Last Infusion: 02/14/21 13:16 Dose: 999 mls/hr Documented by: Remdesivir 200 mg/ Sodium (Chloride) 250 mls @ 250 mls/hr IV ONETIME ONE Stop: 02/15/21 10:44 Last Admin: 02/15/21 12:47 Dose: 250 mls/hr Documented by: Iopamidol (Iopamidol 755 Mg/Ml 500 Ml Multipack Bottle) 100 ml IVPUSH ONETIME ONE Stop: 02/14/21 13:02 Last Admin: 02/14/21 13:01 Dose: 100 ml Documented by: Methylprednisolone Sodium Succinate (Methylprednisolone Sodium Succinate 125 Mg/2 Ml Sdv) Confirm Administered Dose 125 mg .ROUTE .STK-MED ONE Stop: 02/13/21 19:46 Last Admin: 02/13/21 19:53 Dose: Not Given Documented by: Methylprednisolone Sodium Succinate (Methylprednisolone Sodium Succinate 125 Mg /2 Ml Sdv) 125 mg IVPUSH ONETIME ONE Stop: 02/13/21 19:53 Last Admin: 02/13/21 19:53 Dose: 125 mg Documented by: Metoclopramide HCl (Metoclopramide 10 Mg/2 Ml Sdv) 10 mg IVPUSH ONETIME ONE Stop: 02/13/21 20:10 Last Admin: 02/13/21 20:23 Dose: 10 mg Documented by: Metoprolol Tartrate (Metoprolol Tartrate 50 Mg Tab) 100 mg PO ONETIME ONE Stop: 02/15/21 03:32 Last Admin: 02/15/21 03:39 Dose: 100 mg Documented by: Potassium Chloride (Potassium Chloride 20 Meq Tab.Er) 40 meq PO ONETIME ONE Stop: 02/15/21 09:46 - Exam Quality Assessment: Supplemental Oxygen General: Alert, Oriented, Mild Distress Neck: Supple Lungs: Decreased Breath Sounds, Crackles Cardiovascular: Regular Rate, Regular Rhythm GI/Abdominal Exam: Normal Bowel Sounds, Soft, No Distention. No: Non-Tender - Patient Data Lab Results Last 24 hrs: Laboratory Results - last 24 hr 02/14/21 02/14/21 02/15/21 Range/Units 16:09 20:30 06:15 WBC 18.48 H (4.0-11.0) K/uL RBC 3.99 L (4.30-5.90) M/uL Hgb 12.4 (12.0-16.0) g/dL Hct 35.9 L (36.0-46.0) % MCV 90.0 (80.0-98.0) fL MCH 31.1 (27.0-32.0) pg MCHC 34.5 (31.0-37.0) g/dL RDW Std Deviation 48.2 (28.0-62.0) fl RDW Coeff of Ovi 15 (11.0-15.0) % Plt Count 136 L (150-400) K/uL MPV 11.60 (7.40-12.00) fL Neut % (Auto) 89.7 H (48.0-80.0) % Lymph % (Auto) 6.2 L (16.0-40.0) % [place] % (Auto) 3.9 (0.0-15.0) % Eos % (Auto) 0.1 (0.0-7.0) % Baso % (Auto) 0.1 (0.0-1.5) % Neut # (Auto) 16.6 H (1.4-5.7) K/uL Lymph # (Auto) 1.2 (0.6-2.4) K/uL [place] # (Auto) 0.7 (0.0-0.8) K/uL Eos # (Auto) 0.0 (0.0-0.7) K/uL Baso # (Auto) 0.0 (0.0-0.1) K/uL Nucleated RBC % 0.0 /100WBC Nucleated RBCs # 0 K/uL Lactate 2.8 H* 2.0 (0.20-2.00) mmol/L Sodium (136-145) mmol/L Potassium (3.5-5.1) mmol/L Chloride (98-107) mmol/L Carbon Dioxide (21.0-32.0) mmol/L BUN (7.0-18.0) mg/dL Creatinine (0.6-1.0) mg/dL Est Cr Clr Drug Dosing mL/min Estimated GFR (MDRD) ml/min Glucose (74-106) mg/dL Calcium (8.5-10.1) mg/dL Total Bilirubin (0.2-1.0) mg/dL AST (15-37) IU/L ALT (14-63) IU/L Alkaline Phosphatase (46-116) U/L Total Protein (6.4-8.2) g/dL Albumin (3.4-5.0) g/dL Globulin (2.6-4.0) g/dL Albumin/Globulin Ratio (0.9-1.6) 02/15/21 Range/Units 06:15 WBC (4.0-11.0) K/uL RBC (4.30-5.90) M/uL Hgb (12.0-16.0) g/dL Hct (36.0-46.0) % MCV (80.0-98.0) fL MCH (27.0-32.0) pg MCHC (31.0-37.0) g/dL RDW Std Deviation (28.0-62.0) fl RDW Coeff of Ovi (11.0-15.0) % Plt Count (150-400) K/uL MPV (7.40-12.00) fL Neut % (Auto) (48.0-80.0) % Lymph % (Auto) (16.0-40.0) % [place] % (Auto) (0.0-15.0) % Eos % (Auto) (0.0-7.0) % Baso % (Auto) (0.0-1.5) % Neut # (Auto) (1.4-5.7) K/uL Lymph # (Auto) (0.6-2.4) K/uL [place] # (Auto) (0.0-0.8) K/uL Eos # (Auto) (0.0-0.7) K/uL Baso # (Auto) (0.0-0.1) K/uL Nucleated RBC % /100WBC Nucleated RBCs # K/uL Lactate (0.20-2.00) mmol/L Sodium 138 (136-145) mmol/L Potassium 3.1 L (3.5-5.1) mmol/L Chloride 104 (98-107) mmol/L Carbon Dioxide 25.6 (21.0-32.0) mmol/L BUN 8 (7.0-18.0) mg/dL Creatinine 1.2 H (0.6-1.0) mg/dL Est Cr Clr Drug Dosing 54.84 mL/min Estimated GFR (MDRD) 58.6 ml/min Glucose 126 H (74-106) mg/dL Calcium 7.7 L (8.5-10.1) mg/dL Total Bilirubin 0.2 (0.2-1.0) mg/dL AST 17 (15-37) IU/L ALT 25 (14-63) IU/L Alkaline Phosphatase 61 (46-116) U/L Total Protein 5.3 L (6.4-8.2) g/dL Albumin 1.9 L (3.4-5.0) g/dL Globulin 3.4 (2.6-4.0) g/dL Albumin/Globulin Ratio 0.6 L (0.9-1.6) Result Diagrams: 02/15/21 06:15 02/15/21 06:15 Samuel Results Last 24 hrs: Microbiology 02/13/21 20:16 Aerobic Blood Culture - Preliminary Blood - Venous - Lab Draw NO GROWTH AFTER 1 DAY Anaerobic Blood Culture - Final 02/13/21 20:10 Aerobic Blood Culture - Preliminary Blood - Venous NO GROWTH AFTER 1 DAY Anaerobic Blood Culture - Preliminary NO GROWTH AFTER 1 DAY Sepsis Event Note - Evaluation Sepsis Screening Result: Sepsis Risk - Focused Exam Vital Signs: Vital Signs Temp Pulse Pulse Resp BP BP Pulse Ox 02/15/21 09:00 106 H 119/69 02/15/21 08:00 36.9 C 106 H 20 119/96 H 93 L 02/15/21 03:39 135 H 124/62 02/15/21 03:05 20 94 L 02/15/21 03:00 36.7 C 138 H 21 H 114/66 87 L Pulse Ox 02/15/21 09:00 02/15/21 08:00 02/15/21 03:39 02/15/21 03:05 94 L 02/15/21 03:00 - Problem List & Annotations (1) COVID-19 SNOMED Code(s): 590991398 Code(s): U07.1 - COVID-19 Status: Acute Current Visit: Yes (2) Hypoxia SNOMED Code(s): 314395186 Code(s): R09.02 - HYPOXEMIA Status: Acute Current Visit: Yes (3) Tachycardia SNOMED Code(s): 0467738 Code(s): R00.0 - TACHYCARDIA, UNSPECIFIED Status: Acute Current Visit: Yes (4) Anxiety SNOMED Code(s): 64342128 Code(s): F41.9 - ANXIETY DISORDER, UNSPECIFIED Status: Acute Current Visit: Yes (5) PTSD (post-traumatic stress disorder) SNOMED Code(s): 02305182 Code(s): F43.10 - POST-TRAUMATIC STRESS DISORDER, UNSPECIFIED Status: Acute Current Visit: Yes - Problem List Review Problem List Initiated/Reviewed/Updated: Yes - My Orders Last 24 Hours: My Active Orders 02/15/21 01:30 Lactated Ringers [Ringers, Lactated] 500 ml IV ASDIRECTED 02/15/21 09:45 dexAMETHasone 6 mg PO DAILY 02/16/21 09:30 Remdesivir 100 mg Sodium Chloride 0.9% [Normal Saline] 100 ml IV Q24H - Plan Plan:: 45 yo female admitted for concerns of COVID or respiratory tract infection. She has sirs criteria but does not appear septic currently, WBC due to steroids, HR high chronically. Started on remdesivir, dexamethasone Duonebs as needed Resume home meds as appropriate Heparin for DVT ppx Oxygen as needed via CT
[2021-02-15] MEDS: Acetaminophen 325 MG Tab PO PRN (14:57)
[2021-02-15] MEDS: ALPRAZolam 0.5 MG Tab PO SCH ×2 (18:24→20:47)
[2021-02-15] MEDS: Azithromycin 250 MG Tab PO SCH (22:56)
[2021-02-15] MEDS: cefTRIAXone 1 GM in Premix Bag 1 BAG IV SCH (22:57)
[2021-02-16] MEDS: Heparin Sodium 5,000 Units/ML Vial SUBCUT SCH ×3 (04:15→20:22)
[2021-02-16] MEDS: Albuterol/Ipratropium 4 GM Inhalation Spray INH PRN (04:26)
[2021-02-16 06:50] LABS: BLOOD UREA NITROGEN,BUN 11 mg/dL (7.0-18.0); CARBON DIOXIDE,CO2 25.3 mmol/L (21.0-32.0); CHLORIDE,CL 105 mmol/L (98-107); GLUCOSE RANDOM 223 mg/dL (74-106); SODIUM,NA 141 mmol/L (136-145)
[2021-02-16] MEDS: ARIPiprazole 10 MG Tab PO SCH (08:25)
[2021-02-16] MEDS: ALPRAZolam 0.5 MG Tab PO SCH ×2 (08:25→20:22)
[2021-02-16] MEDS: DULoxetine 30 MG Cap PO SCH (08:26)
[2021-02-16] MEDS: Dexamethasone 4 MG Tab PO SCH (08:26)
[2021-02-16] MEDS: Sodium Chloride 0.9% 10 ML Syringe FLUSH PRN (08:26)
[2021-02-16] MEDS: REMDESIVIR 100 MG in Sodium Chloride 0.9% 100 ML IV SCH (08:52)
[2021-02-16] MEDS ORDERED: Metoprolol Tartrate 50 MG Tab PO SCH (09:00)
[2021-02-16] MEDS ORDERED: Metoprolol Tartrate 50 MG Tab PO ONE (09:20)
--- NOTE | 2021-02-16 12:32 | PCM.PN ---
- General Info Date of Service: 02/16/21 Admission Dx/Problem (Free Text): Admission Diagnosis/Problem Admission Diagnosis/Problem Lower respiratory tract infection Subjective Update: seen at bedside, feels better but still weak, requiring 2 lts of oxygen Functional Status: Denies: Tolerating Diet, Ambulating - Review of Systems General: Reports: Weakness, Fatigue, Malaise. Denies: Fever Pulmonary: Reports: Shortness of Breath, Pleuritic Chest Pain, Cough Cardiovascular: Denies: Chest Pain, Palpitations Gastrointestinal: Denies: Abdominal Pain, Constipation, Decreased Appetite Genitourinary: Denies: Dysuria, Frequency, Burning Musculoskeletal: Denies: Neck Pain, Shoulder Pain, Arm Pain Skin: Denies: Cyanosis, Jaundice - Patient Data Vitals - Most Recent: Last Vital Signs Temp 36.2 C 02/16/21 08:00 Pulse 102 H 02/16/21 09:30 Resp 20 02/16/21 08:00 BP 118/69 02/16/21 09:30 Pulse Ox 92 L 02/16/21 08:00 Weight - Most Recent: 83.416 kg I&O - Last 24 Hours: Intake & Output 02/15/21 02/16/21 02/16/21 22:59 06:59 14:59 Intake Total 1000 Output Total 1400 Balance -400 Lab Results Last 24 Hours: Laboratory Results - last 24 hr 02/16/21 02/16/21 Range/Units 06:10 06:10 WBC 13.75 H (4.0-11.0) K/uL RBC 4.31 (4.30-5.90) M/uL Hgb 13.6 (12.0-16.0) g/dL Hct 38.3 (36.0-46.0) % MCV 88.9 (80.0-98.0) fL MCH 31.6 (27.0-32.0) pg MCHC 35.5 (31.0-37.0) g/dL RDW Std Deviation 48.5 (28.0-62.0) fl RDW Coeff of Ovi 15 (11.0-15.0) % Plt Count 140 L (150-400) K/uL MPV 11.50 (7.40-12.00) fL Neut % (Auto) 95.5 H (48.0-80.0) % Lymph % (Auto) 3.4 L (16.0-40.0) % Granite % (Auto) 1.0 (0.0-15.0) % Eos % (Auto) 0.0 (0.0-7.0) % Baso % (Auto) 0.1 (0.0-1.5) % Neut # (Auto) 13.1 H (1.4-5.7) K/uL Lymph # (Auto) 0.5 L (0.6-2.4) K/uL Granite # (Auto) 0.1 (0.0-0.8) K/uL Eos # (Auto) 0.0 (0.0-0.7) K/uL Baso # (Auto) 0.0 (0.0-0.1) K/uL Nucleated RBC % 0.0 /100WBC Nucleated RBCs # 0 K/uL Sodium 141 (136-145) mmol/L Potassium 4.0 (3.5-5.1) mmol/L Chloride 105 (98-107) mmol/L Carbon Dioxide 25.3 (21.0-32.0) mmol/L BUN 11 (7.0-18.0) mg/dL Creatinine 0.9 (0.6-1.0) mg/dL Est Cr Clr Drug Dosing 73.12 mL/min Estimated GFR (MDRD) > 60.0 ml/min Glucose 223 H (74-106) mg/dL Calcium 8.7 (8.5-10.1) mg/dL Phosphorus 3.1 (2.6-4.7) mg/dL Magnesium 2.1 (1.8-2.4) mg/dL Total Bilirubin 0.2 (0.2-1.0) mg/dL AST 16 (15-37) IU/L ALT 32 (14-63) IU/L Alkaline Phosphatase 69 (46-116) U/L Total Protein 6.0 L (6.4-8.2) g/dL Albumin 2.0 L (3.4-5.0) g/dL Globulin 4.0 (2.6-4.0) g/dL Albumin/Globulin Ratio 0.5 L (0.9-1.6) Samuel Results Last 24 Hours: Microbiology 02/13/21 20:16 Aerobic Blood Culture - Preliminary Blood - Venous - Lab Draw NO GROWTH AFTER 2 DAYS Anaerobic Blood Culture - Final 02/13/21 20:10 Aerobic Blood Culture - Preliminary Blood - Venous NO GROWTH AFTER 2 DAYS Anaerobic Blood Culture - Preliminary NO GROWTH AFTER 2 DAYS Med Orders - Current: Current Medications Acetaminophen (Acetaminophen 325 Mg Tab) 650 mg PO Q6H PRN PRN Reason: Pain Last Admin: 02/15/21 14:57 Dose: 650 mg Documented by: Albuterol/Ipratropium (Albuterol/Ipratropium 4 Gm Inhalation [place]) 0 gm INH Q4H PRN PRN Reason: Dyspnea Last Admin: 02/16/21 04:26 Dose: 1 puff Documented by: Alprazolam (Alprazolam 0.5 Mg Tab) 0.5 mg PO BID [facility] Last Admin: 02/16/21 08:25 Dose: 0.5 mg Documented by: Aripiprazole (Aripiprazole 10 Mg Tab) 5 mg PO DAILY [facility] Last Admin: 02/16/21 08:25 Dose: 5 mg Documented by: Azithromycin (Azithromycin 250 Mg Tab) 500 mg PO Q24H [facility] Last Admin: 02/15/21 22:56 Dose: 500 mg Documented by: Dexamethasone (Dexamethasone 4 Mg Tab) 6 mg PO DAILY [facility] Last Admin: 02/16/21 08:26 Dose: 6 mg Documented by: Duloxetine HCl (Duloxetine 30 Mg Cap) 30 mg PO DAILY [facility] Last Admin: 02/16/21 08:26 Dose: 30 mg Documented by: Heparin Sodium (Porcine) (Heparin Sodium 5,000 Units/Ml Vial) 5,000 units SUBCUT Q8H [facility] Last Admin: 02/16/21 12:31 Dose: 5,000 units Documented by: Ceftriaxone Sodium/Dextrose 1 (gm/ Premix) 50 mls @ 100 mls/hr IV Q24H [facility] Last Admin: 02/15/21 22:57 Dose: 100 mls/hr Documented by: Lactated Ringer's (Ringers, Lactated) 500 mls @ 125 mls/hr IV ASDIRECTED [facility] Last Admin: 02/15/21 01:31 Dose: 125 mls/hr Documented by: Remdesivir 100 mg/ Sodium (Chloride) 100 mls @ 100 mls/hr IV Q24H [facility] Stop: 02/19/21 10:29 Last Admin: 02/16/21 08:52 Dose: 100 mls/hr Documented by: Metoprolol Tartrate (Metoprolol Tartrate 50 Mg Tab) 50 mg PO DAILY [facility] Last Admin: 02/16/21 08:25 Dose: 50 mg Documented by: Prazosin 5mg 3 each PO BEDTIME [facility] Last Admin: 02/15/21 20:48 Dose: 3 each Documented by: Vortioxetine Hydrobromide [ Trintellix] 10 Mg 1 each PO DAILY [facility] Last Admin: 02/16/21 08:50 Dose: Not Given Documented by: Eszopiclone [Lunesta (] 2 Mg) 1 each PO BEDTIME PRN PRN Reason: INSOMNIA Pregabalin (Pregabalin 50 Mg Cap) 50 mg PO BEDTIME [facility] Sodium Chloride (Sodium Chloride 0.9% 10 Ml Syringe) 10 ml FLUSH ASDIRECTED PRN PRN Reason: Keep Vein Open Last Admin: 02/16/21 08:26 Dose: 10 ml Documented by: Sodium Chloride (Sodium Chloride 0.9% 2.5 Ml Syringe) 2.5 ml FLUSH ASDIRECTED PRN PRN Reason: Keep Vein Open Discontinued Medications Azithromycin (Azithromycin 250 Mg Tab) 500 mg PO Q24H [facility] Stop: 02/13/21 22:59 Last Admin: 02/13/21 23:43 Dose: 500 mg Documented by: Dexamethasone (Dexamethasone 4 Mg Tab) 6 mg PO Q24H [facility] Diphenhydramine HCl (Diphenhydramine 50 Mg/Ml Sdv) 50 mg IVPUSH ONETIME ONE Stop: 02/13/21 20:08 Last Admin: 02/13/21 20:18 Dose: 50 mg Documented by: Eszopiclone (Eszopiclone 1 Mg Tab) 2 mg PO BEDTIME [facility] Last Admin: 02/15/21 22:20 Dose: Not Given Documented by: Sodium Chloride (Normal Saline) 1,000 mls @ 999 mls/hr IV .BOLUS ONE Stop: 02/13/21 21:11 Last Admin: 02/13/21 20:17 Dose: 999 mls/hr Documented by: Sodium Chloride (Normal Saline) 1,000 mls @ 999 mls/hr IV STAT ONE Stop: 02/13/21 21:20 Last Admin: 02/13/21 21:26 Dose: 999 mls/hr Documented by: Sodium Chloride (Normal Saline) 500 mls @ 999 mls/hr IV .BOLUS [facility] Last Admin: 02/13/21 22:49 Dose: 999 mls/hr Documented by: Ceftriaxone Sodium 1 gm/ (Sodium Chloride) 50 mls @ 100 mls/hr IV ONETIME STA Stop: 02/13/21 23:26 Last Admin: 02/13/21 23:44 Dose: Not Given Documented by: Ceftriaxone Sodium/Dextrose 1 (gm/ Premix) 50 mls @ 100 mls/hr IV ONETIME ONE Stop: 02/14/21 00:05 Last Admin: 02/13/21 23:43 Dose: 100 mls/hr Documented by: Sodium Chloride (Normal Saline) 1,000 mls @ 999 mls/hr IV .Bolus ONE Stop: 02/14/21 13:00 Last Infusion: 02/14/21 13:16 Dose: 999 mls/hr Documented by: Remdesivir 200 mg/ Sodium (Chloride) 250 mls @ 250 mls/hr IV ONETIME ONE Stop: 02/15/21 10:44 Last Admin: 02/15/21 12:47 Dose: 250 mls/hr Documented by: Iopamidol (Iopamidol 755 Mg/Ml 500 Ml Multipack Bottle) 100 ml IVPUSH ONETIME ONE Stop: 02/14/21 13:02 Last Admin: 02/14/21 13:01 Dose: 100 ml Documented by: Methylprednisolone Sodium Succinate (Methylprednisolone Sodium Succinate 125 Mg/2 Ml Sdv) Confirm Administered Dose 125 mg .ROUTE .STK-MED ONE Stop: 02/13/21 19:46 Last Admin: 02/13/21 19:53 Dose: Not Given Documented by: Methylprednisolone Sodium Succinate (Methylprednisolone Sodium Succinate 125 Mg/2 Ml Sdv) 125 mg IVPUSH ONETIME ONE Stop: 02/13/21 19:53 Last Admin: 02/13/21 19:53 Dose: 125 mg Documented by: Metoclopramide HCl (Metoclopramide 10 Mg/2 Ml Sdv) 10 mg IVPUSH ONETIME ONE Stop: 02/13/21 20:10 Last Admin: 02/13/21 20:23 Dose: 10 mg Documented by: Metoprolol Tartrate (Metoprolol Tartrate 50 Mg Tab) 100 mg PO QAM [facility] Last Admin: 02/15/21 09:00 Dose: 100 mg Documented by: Metoprolol Tartrate (Metoprolol Tartrate 50 Mg Tab) 100 mg PO ONETIME ONE Stop: 02/15/21 03:32 Last Admin: 02/15/21 03:39 Dose: 100 mg Documented by: Metoprolol Tartrate (Metoprolol Tartrate 50 Mg Tab) 50 mg PO ONETIME ONE Stop: 02/16/21 09:21 Last Admin: 02/16/21 09:30 Dose: 50 mg Documented by: Potassium Chloride (Potassium Chloride 20 Meq Tab.Er) 40 meq PO ONETIME ONE Stop: 02/15/21 09:46 Last Admin: 02/15/21 13:07 Dose: Not Given Documented by: Potassium Chloride (Potassium Chloride 20 Meq Tab.Er) 40 meq PO ONETIME ONE Stop: 02/15/21 13:01 Last Admin: 02/15/21 13:07 Dose: 40 meq Documented by: - Exam Quality Assessment: Supplemental Oxygen General: Alert, Oriented Neck: Supple Lungs: Clear to Auscultation, Normal Respiratory Effort Cardiovascular: Regular Rhythm, Tachycardia GI/Abdominal Exam: Soft, Non-Tender, No Organomegaly - Patient Data Lab Results Last 24 hrs: Laboratory Results - last 24 hr 02/16/21 02/16/21 Range/Units 06:10 06:10 WBC 13.75 H (4.0-11.0) K/uL RBC 4.31 (4.30-5.90) M/uL Hgb 13.6 (12.0-16.0) g/dL Hct 38.3 (36.0-46.0) % MCV 88.9 (80.0-98.0) fL MCH 31.6 (27.0-32.0) pg MCHC 35.5 (31.0-37.0) g/dL RDW Std Deviation 48.5 (28.0-62.0) fl RDW Coeff of Ovi 15 (11.0-15.0) % Plt Count 140 L (150-400) K/uL MPV 11.50 (7.40-12.00) fL Neut % (Auto) 95.5 H (48.0-80.0) % Lymph % (Auto) 3.4 L (16.0-40.0) % Granite % (Auto) 1.0 (0.0-15.0) % Eos % (Auto) 0.0 (0.0-7.0) % Baso % (Auto) 0.1 (0.0-1.5) % Neut # (Auto) 13.1 H (1.4-5.7) K/uL Lymph # (Auto) 0.5 L (0.6-2.4) K/uL Granite # (Auto) 0.1 (0.0-0.8) K/uL Eos # (Auto) 0.0 (0.0-0.7) K/uL Baso # (Auto) 0.0 (0.0-0.1) K/uL Nucleated RBC % 0.0 /100WBC Nucleated RBCs # 0 K/uL Sodium 141 (136-145) mmol/L Potassium 4.0 (3.5-5.1) mmol/L Chloride 105 (98-107) mmol/L Carbon Dioxide 25.3 (21.0-32.0) mmol/L BUN 11 (7.0-18.0) mg/dL Creatinine 0.9 (0.6-1.0) mg/dL Est Cr Clr Drug Dosing 73.12 mL/min Estimated GFR (MDRD) > 60.0 ml/min Glucose 223 H (74-106) mg/dL Calcium 8.7 (8.5-10.1) mg/dL Phosphorus 3.1 (2.6-4.7) mg/dL Magnesium 2.1 (1.8-2.4) mg/dL Total Bilirubin 0.2 (0.2-1.0) mg/dL AST 16 (15-37) IU/L ALT 32 (14-63) IU/L Alkaline Phosphatase 69 (46-116) U/L Total Protein 6.0 L (6.4-8.2) g/dL Albumin 2.0 L (3.4-5.0) g/dL Globulin 4.0 (2.6-4.0) g/dL Albumin/Globulin Ratio 0.5 L (0.9-1.6) Result Diagrams: 02/16/21 06:10 02/16/21 06:10 Samuel Results Last 24 hrs: Microbiology 02/13/21 20:16 Aerobic Blood Culture - Preliminary Blood - Venous - Lab Draw NO GROWTH AFTER 2 DAYS Anaerobic Blood Culture - Final 02/13/21 20:10 Aerobic Blood Culture - Preliminary Blood - Venous NO GROWTH AFTER 2 DAYS Anaerobic Blood Culture - Preliminary NO GROWTH AFTER 2 DAYS Sepsis Event Note - Evaluation Sepsis Screening Result: Sepsis Risk - Focused Exam Vital Signs: Vital Signs Temp Pulse Pulse Resp BP BP Pulse Ox 02/16/21 09:30 102 H 118/69 02/16/21 08:25 139 H 134/75 02/16/21 08:00 36.2 C 136 H 20 134/75 92 L 02/16/21 04:18 36.1 C 109 H 19 125/85 91 L - Problem List & Annotations (1) COVID-19 SNOMED Code(s): 972230590 Code(s): U07.1 - COVID-19 Status: Acute Current Visit: Yes (2) Hypoxia SNOMED Code(s): 797636057 Code(s): R09.02 - HYPOXEMIA Status: Acute Current Visit: Yes (3) Tachycardia SNOMED Code(s): 2848098 Code(s): R00.0 - TACHYCARDIA, UNSPECIFIED Status: Acute Current Visit: Yes (4) Anxiety SNOMED Code(s): 49099801 Code(s): F41.9 - ANXIETY DISORDER, UNSPECIFIED Status: Acute Current Visit: Yes (5) PTSD (post-traumatic stress disorder) SNOMED Code(s): 07486942 Code(s): F43.10 - POST-TRAUMATIC STRESS DISORDER, UNSPECIFIED Status: Acute Current Visit: Yes - Problem List Review Problem List Initiated/Reviewed/Updated: Yes - My Orders Last 24 Hours: My Active Orders 02/15/21 15:58 ALPRAZolam [Xanax] 0.5 mg PO BID 02/16/21 09:00 ARIPiprazole [Abilify] 5 mg PO DAILY DULoxetine [Cymbalta] 30 mg PO DAILY Patient's Own Medication [Ptom] 1 each PO DAILY 02/16/21 09:30 Remdesivir 100 mg Sodium Chloride 0.9% [Normal Saline] 100 ml IV Q24H 02/16/21 11:43 Communication Order [RC] DAILY 02/16/21 21:00 Patient's Own Medication [Ptom] 1 each PO BEDTIME PRN Pregabalin [Lyrica] 50 mg PO BEDTIME - Plan Plan:: 45 yo female admitted for concerns of COVID or respiratory tract infection. cont. on Remdesivir, dexamethasone Duonebs as needed Resume home meds as appropriate Heparin for DVT ppx Oxygen as needed via [place]
[2021-02-16] MEDS: Pregabalin 50 MG Cap PO SCH (20:23)
[2021-02-16] MEDS: Azithromycin 250 MG Tab PO SCH (22:55)
[2021-02-16] MEDS: cefTRIAXone 1 GM in Premix Bag 1 BAG IV SCH (22:55)
[2021-02-17] MEDS: Heparin Sodium 5,000 Units/ML Vial SUBCUT SCH ×3 (04:01→19:57)
[2021-02-17 06:59] LABS: BLOOD UREA NITROGEN,BUN 20 mg/dL (7.0-18.0); CARBON DIOXIDE,CO2 26.8 mmol/L (21.0-32.0); CHLORIDE,CL 105 mmol/L (98-107); GLUCOSE RANDOM 273 mg/dL (74-106); POTASSIUM,K 4.2 mmol/L (3.5-5.1); SODIUM,NA 141 mmol/L (136-145)
[2021-02-17] MEDS ORDERED: Metoprolol Tartrate 50 MG Tab PO SCH (09:00)
[2021-02-17] MEDS: ARIPiprazole 10 MG Tab PO SCH (09:14)
[2021-02-17] MEDS: DULoxetine 30 MG Cap PO SCH (09:15)
[2021-02-17] MEDS: ALPRAZolam 0.5 MG Tab PO SCH ×2 (09:15→21:10)
[2021-02-17] MEDS: Dexamethasone 4 MG Tab PO SCH (09:16)
[2021-02-17] MEDS: REMDESIVIR 100 MG in Sodium Chloride 0.9% 100 ML IV SCH (09:19)
--- NOTE | 2021-02-17 12:25 | PCM.PN ---
- General Info Date of Service: 02/17/21 Admission Dx/Problem (Free Text): Admission Diagnosis/Problem Admission Diagnosis/Problem Lower respiratory tract infection Subjective Update: seen at bedside, feels better but still weak, requiring 2 lts of oxygen Functional Status: Reports: Tolerating Diet, Ambulating, Urinating - Review of Systems General: Reports: Weakness, Fatigue. Denies: Fever, Malaise, Chills Pulmonary: Reports: Shortness of Breath, Pleuritic Chest Pain, Cough. Denies: Sputum, Hemoptysis Cardiovascular: Reports: Dyspnea on Exertion. Denies: Palpitations Gastrointestinal: Reports: No Symptoms. Denies: Abdominal Pain Genitourinary: Reports: No Symptoms Musculoskeletal: Reports: No Symptoms Skin: Reports: No Symptoms - Patient Data Vitals - Most Recent: Last Vital Signs Temp 36.5 C 02/17/21 12:06 Pulse 103 H 02/17/21 12:06 Resp 18 02/17/21 12:06 BP 105/61 02/17/21 12:06 Pulse Ox 91 L 02/17/21 12:06 Weight - Most Recent: 83.416 kg I&O - Last 24 Hours: Intake & Output 02/16/21 02/17/21 02/17/21 22:59 06:59 14:59 Intake Total 1250 Output Total 1000 Balance 250 Lab Results Last 24 Hours: Laboratory Results - last 24 hr 02/17/21 02/17/21 Range/Units 06:00 06:00 WBC 20.00 H (4.0-11.0) K/uL RBC 4.13 L (4.30-5.90) M/uL Hgb 12.9 (12.0-16.0) g/dL Hct 36.6 (36.0-46.0) % MCV 88.6 (80.0-98.0) fL MCH 31.2 (27.0-32.0) pg MCHC 35.2 (31.0-37.0) g/dL RDW Std Deviation 48.3 (28.0-62.0) fl RDW Coeff of Ovi 15 (11.0-15.0) % Plt Count 163 (150-400) K/uL MPV 11.40 (7.40-12.00) fL Neut % (Auto) 93.0 H (48.0-80.0) % Lymph % (Auto) 4.6 L (16.0-40.0) % Bates % (Auto) 2.3 (0.0-15.0) % Eos % (Auto) 0.0 (0.0-7.0) % Baso % (Auto) 0.1 (0.0-1.5) % Neut # (Auto) 18.6 H (1.4-5.7) K/uL Lymph # (Auto) 0.9 (0.6-2.4) K/uL Bates # (Auto) 0.5 (0.0-0.8) K/uL Eos # (Auto) 0.0 (0.0-0.7) K/uL Baso # (Auto) 0.0 (0.0-0.1) K/uL Nucleated RBC % 0.0 /100WBC Nucleated RBCs # 0 K/uL Sodium 141 (136-145) mmol/L Potassium 4.2 (3.5-5.1) mmol/L Chloride 105 (98-107) mmol/L Carbon Dioxide 26.8 (21.0-32.0) mmol/L BUN 20 H (7.0-18.0) mg/dL Creatinine 1.0 (0.6-1.0) mg/dL Est Cr Clr Drug Dosing 65.81 mL/min Estimated GFR (MDRD) > 60.0 ml/min Glucose 273 H (74-106) mg/dL Calcium 9.0 (8.5-10.1) mg/dL Phosphorus 3.8 (2.6-4.7) mg/dL Magnesium 1.9 (1.8-2.4) mg/dL Total Bilirubin 0.2 (0.2-1.0) mg/dL AST 22 (15-37) IU/L ALT 52 (14-63) IU/L Alkaline Phosphatase 82 (46-116) U/L Total Protein 5.6 L (6.4-8.2) g/dL Albumin 1.9 L (3.4-5.0) g/dL Globulin 3.7 (2.6-4.0) g/dL Albumin/Globulin Ratio 0.5 L (0.9-1.6) Samuel Results Last 24 Hours: Microbiology 02/13/21 20:16 Aerobic Blood Culture - Preliminary Blood - Venous - Lab Draw NO GROWTH AFTER 3 DAYS Anaerobic Blood Culture - Final 02/13/21 20:10 Aerobic Blood Culture - Preliminary Blood - Venous NO GROWTH AFTER 3 DAYS Anaerobic Blood Culture - Preliminary NO GROWTH AFTER 3 DAYS Med Orders - Current: Current Medications Acetaminophen (Acetaminophen 325 Mg Tab) 650 mg PO Q6H PRN PRN Reason: Pain Last Admin: 02/15/21 14:57 Dose: 650 mg Documented by: Albuterol/Ipratropium (Albuterol/Ipratropium 4 Gm Inhalation [place]) 0 gm INH Q4H PRN PRN Reason: Dyspnea Last Admin: 02/16/21 04:26 Dose: 1 puff Documented by: Alprazolam (Alprazolam 0.5 Mg Tab) 0.5 mg PO BID [facility] Last Admin: 02/17/21 09:15 Dose: 0.5 mg Documented by: Aripiprazole (Aripiprazole 10 Mg Tab) 5 mg PO DAILY [facility] Last Admin: 02/17/21 09:14 Dose: 5 mg Documented by: Azithromycin (Azithromycin 250 Mg Tab) 500 mg PO Q24H [facility] Last Admin: 02/16/21 22:55 Dose: 500 mg Documented by: Dexamethasone (Dexamethasone 4 Mg Tab) 6 mg PO DAILY [facility] Last Admin: 02/17/21 09:16 Dose: 6 mg Documented by: Duloxetine HCl (Duloxetine 30 Mg Cap) 30 mg PO DAILY [facility] Last Admin: 02/17/21 09:15 Dose: 30 mg Documented by: Heparin Sodium (Porcine) (Heparin Sodium 5,000 Units/Ml Vial) 5,000 units SUBCUT Q8H [facility] Last Admin: 02/17/21 12:05 Dose: 5,000 units Documented by: Ceftriaxone Sodium/Dextrose 1 (gm/ Premix) 50 mls @ 100 mls/hr IV Q24H [facility] Last Admin: 02/16/21 22:55 Dose: 100 mls/hr Documented by: Lactated Ringer's (Ringers, Lactated) 500 mls @ 125 mls/hr IV ASDIRECTED [facility] Last Admin: 02/15/21 01:31 Dose: 125 mls/hr Documented by: Remdesivir 100 mg/ Sodium (Chloride) 100 mls @ 100 mls/hr IV Q24H [facility] Stop: 02/19/21 10:29 Last Admin: 02/17/21 09:19 Dose: 100 mls/hr Documented by: Metoprolol Tartrate (Metoprolol Tartrate 50 Mg Tab) 100 mg PO Q24H [facility] Prazosin 5mg 3 each PO BEDTIME [facility] Last Admin: 02/16/21 20:23 Dose: 3 each Documented by: Vortioxetine Hydrobromide [ Trintellix] 10 Mg 1 each PO DAILY [facility] Last Admin: 02/17/21 12:05 Dose: Not Given Documented by: Eszopiclone [Lunesta (] 2 Mg) 1 each PO BEDTIME PRN PRN Reason: INSOMNIA Pregabalin (Pregabalin 50 Mg Cap) 50 mg PO BEDTIME [facility] Last Admin: 02/16/21 20:23 Dose: 50 mg Documented by: Sodium Chloride (Sodium Chloride 0.9% 10 Ml Syringe) 10 ml FLUSH ASDIRECTED PRN PRN Reason: Keep Vein Open Last Admin: 02/16/21 08:26 Dose: 10 ml Documented by: Sodium Chloride (Sodium Chloride 0.9% 2.5 Ml Syringe) 2.5 ml FLUSH ASDIRECTED PRN PRN Reason: Keep Vein Open Discontinued Medications Azithromycin (Azithromycin 250 Mg Tab) 500 mg PO Q24H [facility] Stop: 02/13/21 22:59 Last Admin: 02/13/21 23:43 Dose: 500 mg Documented by: Dexamethasone (Dexamethasone 4 Mg Tab) 6 mg PO Q24H [facility] Diphenhydramine HCl (Diphenhydramine 50 Mg/Ml Sdv) 50 mg IVPUSH ONETIME ONE Stop: 02/13/21 20:08 Last Admin: 02/13/21 20:18 Dose: 50 mg Documented by: Eszopiclone (Eszopiclone 1 Mg Tab) 2 mg PO BEDTIME [facility] Last Admin: 02/15/21 22:20 Dose: Not Given Documented by: Sodium Chloride (Normal Saline) 1,000 mls @ 999 mls/hr IV .BOLUS ONE Stop: 02/13/21 21:11 Last Admin: 02/13/21 20:17 Dose: 999 mls/hr Documented by: Sodium Chloride (Normal Saline) 1,000 mls @ 999 mls/hr IV STAT ONE Stop: 02/13/21 21:20 Last Admin: 02/13/21 21:26 Dose: 999 mls/hr Documented by: Sodium Chloride (Normal Saline) 500 mls @ 999 mls/hr IV .BOLUS [facility] Last Admin: 02/13/21 22:49 Dose: 999 mls/hr Documented by: Ceftriaxone Sodium 1 gm/ (Sodium Chloride) 50 mls @ 100 mls/hr IV ONETIME STA Stop: 02/13/21 23:26 Last Admin: 02/13/21 23:44 Dose: Not Given Documented by: Ceftriaxone Sodium/Dextrose 1 (gm/ Premix) 50 mls @ 100 mls/hr IV ONETIME ONE Stop: 02/14/21 00:05 Last Admin: 02/13/21 23:43 Dose: 100 mls/hr Documented by: Sodium Chloride (Normal Saline) 1,000 mls @ 999 mls/hr IV .Bolus ONE Stop: 02/14/21 13:00 Last Infusion: 02/14/21 13:16 Dose: 999 mls/hr Documented by: Remdesivir 200 mg/ Sodium (Chloride) 250 mls @ 250 mls/hr IV ONETIME ONE Stop: 02/15/21 10:44 Last Admin: 02/15/21 12:47 Dose: 250 mls/hr Documented by: Iopamidol (Iopamidol 755 Mg/Ml 500 Ml Multipack Bottle) 100 ml IVPUSH ONETIME ONE Stop: 02/14/21 13:02 Last Admin: 02/14/21 13:01 Dose: 100 ml Documented by: Methylprednisolone Sodium Succinate (Methylprednisolone Sodium Succinate 125 Mg/2 Ml Sdv) Confirm Administered Dose 125 mg .ROUTE .STK-MED ONE Stop: 02/13/21 19:46 Last Admin: 02/13/21 19:53 Dose: Not Given Documented by: Methylprednisolone Sodium Succinate (Methylprednisolone Sodium Succinate 125 Mg/2 Ml Sdv) 125 mg IVPUSH ONETIME ONE Stop: 02/13/21 19:53 Last Admin: 02/13/21 19:53 Dose: 125 mg Documented by: Metoclopramide HCl (Metoclopramide 10 Mg/2 Ml Sdv) 10 mg IVPUSH ONETIME ONE Stop: 02/13/21 20:10 Last Admin: 02/13/21 20:23 Dose: 10 mg Documented by: Metoprolol Tartrate (Metoprolol Tartrate 50 Mg Tab) 100 mg PO QAM [facility] Last Admin: 02/15/21 09:00 Dose: 100 mg Documented by: Metoprolol Tartrate (Metoprolol Tartrate 50 Mg Tab) 100 mg PO ONETIME ONE Stop: 02/15/21 03:32 Last Admin: 02/15/21 03:39 Dose: 100 mg Documented by: Metoprolol Tartrate (Metoprolol Tartrate 50 Mg Tab) 50 mg PO DAILY [facility] Last Admin: 02/16/21 08:25 Dose: 50 mg Documented by: Metoprolol Tartrate (Metoprolol Tartrate 50 Mg Tab) 50 mg PO ONETIME ONE Stop: 02/16/21 09:21 Last Admin: 02/16/21 09:30 Dose: 50 mg Documented by: Metoprolol Tartrate (Metoprolol Tartrate 50 Mg Tab) 100 mg PO DAILY [facility] Last Admin: 02/17/21 09:15 Dose: 100 mg Documented by: Potassium Chloride (Potassium Chloride 20 Meq Tab.Er) 40 meq PO ONETIME ONE Stop: 02/15/21 09:46 Last Admin: 02/15/21 13:07 Dose: Not Given Documented by: Potassium Chloride (Potassium Chloride 20 Meq Tab.Er) 40 meq PO ONETIME ONE Stop: 02/15/21 13:01 Last Admin: 02/15/21 13:07 Dose: 40 meq Documented by: - Exam Quality Assessment: Supplemental Oxygen General: Alert, Oriented Lungs: Clear to Auscultation, Normal Respiratory Effort Cardiovascular: Regular Rate, Regular Rhythm GI/Abdominal Exam: Normal Bowel Sounds, Soft, Non-Tender - Patient Data Lab Results Last 24 hrs: Laboratory Results - last 24 hr 02/17/21 02/17/21 Range/Units 06:00 06:00 WBC 20.00 H (4.0-11.0) K/uL RBC 4.13 L (4.30-5.90) M/uL Hgb 12.9 (12.0-16.0) g/dL Hct 36.6 (36.0-46.0) % MCV 88.6 (80.0-98.0) fL MCH 31.2 (27.0-32.0) pg MCHC 35.2 (31.0-37.0) g/dL RDW Std Deviation 48.3 (28.0-62.0) fl RDW Coeff of Ovi 15 (11.0-15.0) % Plt Count 163 (150-400) K/uL MPV 11.40 (7.40-12.00) fL Neut % (Auto) 93.0 H (48.0-80.0) % Lymph % (Auto) 4.6 L (16.0-40.0) % Bates % (Auto) 2.3 (0.0-15.0) % Eos % (Auto) 0.0 (0.0-7.0) % Baso % (Auto) 0.1 (0.0-1.5) % Neut # (Auto) 18.6 H (1.4-5.7) K/uL Lymph # (Auto) 0.9 (0.6-2.4) K/uL Bates # (Auto) 0.5 (0.0-0.8) K/uL Eos # (Auto) 0.0 (0.0-0.7) K/uL Baso # (Auto) 0.0 (0.0-0.1) K/uL Nucleated RBC % 0.0 /100WBC Nucleated RBCs # 0 K/uL Sodium 141 (136-145) mmol/L Potassium 4.2 (3.5-5.1) mmol/L Chloride 105 (98-107) mmol/L Carbon Dioxide 26.8 (21.0-32.0) mmol/L BUN 20 H (7.0-18.0) mg/dL Creatinine 1.0 (0.6-1.0) mg/dL Est Cr Clr Drug Dosing 65.81 mL/min Estimated GFR (MDRD) > 60.0 ml/min Glucose 273 H (74-106) mg/dL Calcium 9.0 (8.5-10.1) mg/dL Phosphorus 3.8 (2.6-4.7) mg/dL Magnesium 1.9 (1.8-2.4) mg/dL Total Bilirubin 0.2 (0.2-1.0) mg/dL AST 22 (15-37) IU/L ALT 52 (14-63) IU/L Alkaline Phosphatase 82 (46-116) U/L Total Protein 5.6 L (6.4-8.2) g/dL Albumin 1.9 L (3.4-5.0) g/dL Globulin 3.7 (2.6-4.0) g/dL Albumin/Globulin Ratio 0.5 L (0.9-1.6) Result Diagrams: 02/17/21 06:00 02/17/21 06:00 Samuel Results Last 24 hrs: Microbiology 02/13/21 20:16 Aerobic Blood Culture - Preliminary Blood - Venous - Lab Draw NO GROWTH AFTER 3 DAYS Anaerobic Blood Culture - Final 02/13/21 20:10 Aerobic Blood Culture - Preliminary Blood - Venous NO GROWTH AFTER 3 DAYS Anaerobic Blood Culture - Preliminary NO GROWTH AFTER 3 DAYS Sepsis Event Note - Evaluation Sepsis Screening Result: Sepsis Risk - Focused Exam Vital Signs: Vital Signs Temp Pulse Pulse Resp BP BP Pulse Ox 02/17/21 12:06 36.5 C 103 H 18 105/61 91 L 02/17/21 09:15 143 H 115/63 02/17/21 09:00 37.3 C 132 H 18 115/63 91 L 02/17/21 04:00 35.9 C L 99 18 114/67 91 L - Problem List & Annotations (1) COVID-19 SNOMED Code(s): 321693691 Code(s): U07.1 - COVID-19 Status: Acute Current Visit: Yes (2) Hypoxia SNOMED Code(s): 046059340 Code(s): R09.02 - HYPOXEMIA Status: Acute Current Visit: Yes (3) Tachycardia SNOMED Code(s): 7524952 Code(s): R00.0 - TACHYCARDIA, UNSPECIFIED Status: Acute Current Visit: Yes (4) Anxiety SNOMED Code(s): 50170196 Code(s): F41.9 - ANXIETY DISORDER, UNSPECIFIED Status: Acute Current Visit: Yes (5) PTSD (post-traumatic stress disorder) SNOMED Code(s): 95245706 Code(s): F43.10 - POST-TRAUMATIC STRESS DISORDER, UNSPECIFIED Status: Acute Current Visit: Yes - Problem List Review Problem List Initiated/Reviewed/Updated: Yes - My Orders Last 24 Hours: My Active Orders 02/16/21 11:43 Communication Order [RC] DAILY 02/16/21 21:00 Patient's Own Medication [Ptom] 1 each PO BEDTIME PRN Pregabalin [Lyrica] 50 mg PO BEDTIME 02/18/21 06:00 Metoprolol Tartrate [Lopressor] 100 mg PO Q24H - Plan Plan:: 45 yo female admitted for concerns of COVID or respiratory tract infection. Leucocytosis noted, no fever, likely due to steroid use cont. on Remdesivir, dexamethasone Duonebs as needed cont IV antibiotics Resume home meds as appropriate Heparin for DVT ppx Oxygen as needed via [place]
[2021-02-17] MEDS: Pregabalin 50 MG Cap PO SCH (21:10)
[2021-02-17] MEDS: Azithromycin 250 MG Tab PO SCH (22:59)
[2021-02-17] MEDS: cefTRIAXone 1 GM in Premix Bag 1 BAG IV SCH (22:59)
[2021-02-18] MEDS: Heparin Sodium 5,000 Units/ML Vial SUBCUT SCH (03:50)
[2021-02-18] MEDS: Metoprolol Tartrate 50 MG Tab PO SCH (05:56)
[2021-02-18 06:29] LABS: BLOOD UREA NITROGEN,BUN 24 mg/dL (7.0-18.0); CARBON DIOXIDE,CO2 30.5 mmol/L (21.0-32.0); CHLORIDE,CL 105 mmol/L (98-107); GLUCOSE RANDOM 223 mg/dL (74-106); POTASSIUM,K 4.3 mmol/L (3.5-5.1); SODIUM,NA 141 mmol/L (136-145)
[2021-02-18] MEDS: ARIPiprazole 10 MG Tab PO SCH (09:19)
[2021-02-18] MEDS: ALPRAZolam 0.5 MG Tab PO SCH ×2 (09:19→21:32)
[2021-02-18] MEDS: DULoxetine 30 MG Cap PO SCH (09:19)
[2021-02-18] MEDS: Dexamethasone 4 MG Tab PO SCH (09:20)
[2021-02-18] MEDS: REMDESIVIR 100 MG in Sodium Chloride 0.9% 100 ML IV SCH (09:22)
[2021-02-18] MEDS: Enoxaparin 40 MG/0.4 ML Syringe SUBCUT SCH (12:14)
[2021-02-18] MEDS: Acetaminophen 325 MG Tab PO PRN (12:17)
--- NOTE | 2021-02-18 13:54 | PCM.PN ---
- General Info Date of Service: 02/18/21 Admission Dx/Problem (Free Text): Admission Diagnosis/Problem Admission Diagnosis/Problem Lower respiratory tract infection Subjective Update: seen at bedside, feels much better , more energetic, , requiring 1 lts of oxygen - Review of Systems General: Denies: Fever, Weakness, Fatigue Pulmonary: Reports: Shortness of Breath, Cough. Denies: Pleuritic Chest Pain Cardiovascular: Denies: Chest Pain, Palpitations Gastrointestinal: Denies: Abdominal Pain, Constipation Genitourinary: Denies: Dysuria, Frequency, Burning Musculoskeletal: Denies: Neck Pain, Shoulder Pain, Arm Pain Skin: Denies: Cyanosis, Jaundice, Mottled - Patient Data Vitals - Most Recent: Last Vital Signs Temp 36.2 C 02/18/21 12:00 Pulse 98 02/18/21 12:00 Resp 18 02/18/21 12:00 BP 109/59 L 02/18/21 12:00 Pulse Ox 93 L 02/18/21 12:00 Weight - Most Recent: 83.416 kg I&O - Last 24 Hours: Intake & Output 02/17/21 02/18/21 02/18/21 22:59 06:59 14:59 Intake Total 2680 1480 Output Total 2200 1600 Balance 480 -120 Lab Results Last 24 Hours: Laboratory Results - last 24 hr 02/18/21 02/18/21 Range/Units 05:30 05:30 WBC 15.67 H (4.0-11.0) K/uL RBC 3.97 L (4.30-5.90) M/uL Hgb 12.4 (12.0-16.0) g/dL Hct 35.0 L (36.0-46.0) % MCV 88.2 (80.0-98.0) fL MCH 31.2 (27.0-32.0) pg MCHC 35.4 (31.0-37.0) g/dL RDW Std Deviation 48.4 (28.0-62.0) fl RDW Coeff of Ovi 15 (11.0-15.0) % Plt Count 172 (150-400) K/uL MPV 11.70 (7.40-12.00) fL Neut % (Auto) 89.9 H (48.0-80.0) % Lymph % (Auto) 6.9 L (16.0-40.0) % Caroline % (Auto) 3.1 (0.0-15.0) % Eos % (Auto) 0.0 (0.0-7.0) % Baso % (Auto) 0.1 (0.0-1.5) % Neut # (Auto) 14.1 H (1.4-5.7) K/uL Lymph # (Auto) 1.1 (0.6-2.4) K/uL Caroline # (Auto) 0.5 (0.0-0.8) K/uL Eos # (Auto) 0.0 (0.0-0.7) K/uL Baso # (Auto) 0.0 (0.0-0.1) K/uL Nucleated RBC % 0.0 /100WBC Nucleated RBCs # 0 K/uL Sodium 141 (136-145) mmol/L Potassium 4.3 (3.5-5.1) mmol/L Chloride 105 (98-107) mmol/L Carbon Dioxide 30.5 (21.0-32.0) mmol/L BUN 24 H (7.0-18.0) mg/dL Creatinine 1.0 (0.6-1.0) mg/dL Est Cr Clr Drug Dosing 65.81 mL/min Estimated GFR (MDRD) > 60.0 ml/min Glucose 223 H (74-106) mg/dL Calcium 8.9 (8.5-10.1) mg/dL Phosphorus 5.0 H (2.6-4.7) mg/dL Magnesium 1.7 L (1.8-2.4) mg/dL Total Bilirubin 0.2 (0.2-1.0) mg/dL AST 12 L (15-37) IU/L ALT 45 (14-63) IU/L Alkaline Phosphatase 79 (46-116) U/L Total Protein 5.4 L (6.4-8.2) g/dL Albumin 1.9 L (3.4-5.0) g/dL Globulin 3.5 (2.6-4.0) g/dL Albumin/Globulin Ratio 0.5 L (0.9-1.6) Samuel Results Last 24 Hours: Microbiology 02/13/21 20:16 Aerobic Blood Culture - Preliminary Blood - Venous - Lab Draw NO GROWTH AFTER 4 DAYS Anaerobic Blood Culture - Final 02/13/21 20:10 Aerobic Blood Culture - Preliminary Blood - Venous NO GROWTH AFTER 4 DAYS Anaerobic Blood Culture - Preliminary NO GROWTH AFTER 4 DAYS Med Orders - Current: Current Medications Acetaminophen (Acetaminophen 325 Mg Tab) 650 mg PO Q6H PRN PRN Reason: Pain Last Admin: 02/18/21 12:17 Dose: 650 mg Documented by: Albuterol/Ipratropium (Albuterol/Ipratropium 4 Gm Inhalation [place]) 0 gm INH Q4H PRN PRN Reason: Dyspnea Last Admin: 02/16/21 04:26 Dose: 1 puff Documented by: Alprazolam (Alprazolam 0.5 Mg Tab) 0.5 mg PO BID [facility] Last Admin: 02/18/21 09:19 Dose: 0.5 mg Documented by: Aripiprazole (Aripiprazole 10 Mg Tab) 5 mg PO DAILY [facility] Last Admin: 02/18/21 09:19 Dose: 5 mg Documented by: Azithromycin (Azithromycin 250 Mg Tab) 500 mg PO Q24H [facility] Last Admin: 02/17/21 22:59 Dose: 500 mg Documented by: Dexamethasone (Dexamethasone 4 Mg Tab) 6 mg PO DAILY [facility] Last Admin: 02/18/21 09:20 Dose: 6 mg Documented by: Duloxetine HCl (Duloxetine 30 Mg Cap) 30 mg PO DAILY [facility] Last Admin: 02/18/21 09:19 Dose: 30 mg Documented by: Enoxaparin Sodium (Enoxaparin 40 Mg/0.4 Ml Syringe) 40 mg SUBCUT Q24H [facility] Last Admin: 02/18/21 12:14 Dose: 40 mg Documented by: Ceftriaxone Sodium/Dextrose 1 (gm/ Premix) 50 mls @ 100 mls/hr IV Q24H [facility] Last Admin: 02/17/21 22:59 Dose: 100 mls/hr Documented by: Remdesivir 100 mg/ Sodium (Chloride) 100 mls @ 100 mls/hr IV Q24H [facility] Stop: 02/19/21 10:29 Last Admin: 02/18/21 09:22 Dose: 100 mls/hr Documented by: Metoprolol Tartrate (Metoprolol Tartrate 50 Mg Tab) 100 mg PO Q24H [facility] Last Admin: 02/18/21 05:56 Dose: 100 mg Documented by: Prazosin 5mg 3 each PO BEDTIME [facility] Last Admin: 02/17/21 21:09 Dose: 3 each Documented by: Vortioxetine Hydrobromide [ Trintellix] 10 Mg 1 each PO DAILY [facility] Last Admin: 02/18/21 09:20 Dose: Not Given Documented by: Eszopiclone [Lunesta (] 2 Mg) 1 each PO BEDTIME PRN PRN Reason: INSOMNIA Pregabalin (Pregabalin 50 Mg Cap) 50 mg PO BEDTIME COCO Last Admin: 02/17/21 21:10 Dose: 50 mg Documented by: Sodium Chloride (Sodium Chloride 0.9% 10 Ml Syringe) 10 ml FLUSH ASDIRECTED PRN PRN Reason: Keep Vein Open Last Admin: 02/16/21 08:26 Dose: 10 ml Documented by: Sodium Chloride (Sodium Chloride 0.9% 2.5 Ml Syringe) 2.5 ml FLUSH ASDIRECTED PRN PRN Reason: Keep Vein Open Discontinued Medications Azithromycin (Azithromycin 250 Mg Tab) 500 mg PO Q24H STA Stop: 02/13/21 22:59 Last Admin: 02/13/21 23:43 Dose: 500 mg Documented by: Dexamethasone (Dexamethasone 4 Mg Tab) 6 mg PO Q24H COCO Diphenhydramine HCl (Diphenhydramine 50 Mg/Ml Sdv) 50 mg IVPUSH ONETIME ONE Stop: 02/13/21 20:08 Last Admin: 02/13/21 20:18 Dose: 50 mg Documented by: Eszopiclone (Eszopiclone 1 Mg Tab) 2 mg PO BEDTIME [facility] Last Admin: 02/15/21 22:20 Dose: Not Given Documented by: Heparin Sodium (Porcine) (Heparin Sodium 5,000 Units/Ml Vial) 5,000 units SUBCUT Q8H [facility] Last Admin: 02/18/21 03:50 Dose: 5,000 units Documented by: Sodium Chloride (Normal Saline) 1,000 mls @ 999 mls/hr IV .BOLUS ONE Stop: 02/13/21 21:11 Last Admin: 02/13/21 20:17 Dose: 999 mls/hr Documented by: Sodium Chloride (Normal Saline) 1,000 mls @ 999 mls/hr IV STAT ONE Stop: 02/13/21 21:20 Last Admin: 02/13/21 21:26 Dose: 999 mls/hr Documented by: Sodium Chloride (Normal Saline) 500 mls @ 999 mls/hr IV .BOLUS [facility] Last Admin: 02/13/21 22:49 Dose: 999 mls/hr Documented by: Ceftriaxone Sodium 1 gm/ (Sodium Chloride) 50 mls @ 100 mls/hr IV ONETIME STA Stop: 02/13/21 23:26 Last Admin: 02/13/21 23:44 Dose: Not Given Documented by: Ceftriaxone Sodium/Dextrose 1 (gm/ Premix) 50 mls @ 100 mls/hr IV ONETIME ONE Stop: 02/14/21 00:05 Last Admin: 02/13/21 23:43 Dose: 100 mls/hr Documented by: Sodium Chloride (Normal Saline) 1,000 mls @ 999 mls/hr IV .Bolus ONE Stop: 02/14/21 13:00 Last Infusion: 02/14/21 13:16 Dose: 999 mls/hr Documented by: Lactated Ringer's (Ringers, Lactated) 500 mls @ 125 mls/hr IV ASDIRECTED [facility] Last Admin: 02/15/21 01:31 Dose: 125 mls/hr Documented by: Remdesivir 200 mg/ Sodium (Chloride) 250 mls @ 250 mls/hr IV ONETIME ONE Stop: 02/15/21 10:44 Last Admin: 02/15/21 12:47 Dose: 250 mls/hr Documented by: Iopamidol (Iopamidol 755 Mg/Ml 500 Ml Multipack Bottle) 100 ml IVPUSH ONETIME ONE Stop: 02/14/21 13:02 Last Admin: 02/14/21 13:01 Dose: 100 ml Documented by: Methylprednisolone Sodium Succinate (Methylprednisolone Sodium Succinate 125 Mg/2 Ml Sdv) Confirm Administered Dose 125 mg .ROUTE .STK-MED ONE Stop: 02/13/21 19:46 Last Admin: 02/13/21 19:53 Dose: Not Given Documented by: Methylprednisolone Sodium Succinate (Methylprednisolone Sodium Succinate 125 Mg/2 Ml Sdv) 125 mg IVPUSH ONETIME ONE Stop: 02/13/21 19:53 Last Admin: 02/13/21 19:53 Dose: 125 mg Documented by: Metoclopramide HCl (Metoclopramide 10 Mg/2 Ml Sdv) 10 mg IVPUSH ONETIME ONE Stop: 02/13/21 20:10 Last Admin: 02/13/21 20:23 Dose: 10 mg Documented by: Metoprolol Tartrate (Metoprolol Tartrate 50 Mg Tab) 100 mg PO QAM [facility] Last Admin: 02/15/21 09:00 Dose: 100 mg Documented by: Metoprolol Tartrate (Metoprolol Tartrate 50 Mg Tab) 100 mg PO ONETIME ONE Stop: 02/15/21 03:32 Last Admin: 02/15/21 03:39 Dose: 100 mg Documented by: Metoprolol Tartrate (Metoprolol Tartrate 50 Mg Tab) 50 mg PO DAILY [facility] Last Admin: 02/16/21 08:25 Dose: 50 mg Documented by: Metoprolol Tartrate (Metoprolol Tartrate 50 Mg Tab) 50 mg PO ONETIME ONE Stop: 02/16/21 09:21 Last Admin: 02/16/21 09:30 Dose: 50 mg Documented by: Metoprolol Tartrate (Metoprolol Tartrate 50 Mg Tab) 100 mg PO DAILY [facility] Last Admin: 02/17/21 09:15 Dose: 100 mg Documented by: Potassium Chloride (Potassium Chloride 20 Meq Tab.Er) 40 meq PO ONETIME ONE Stop: 02/15/21 09:46 Last Admin: 02/15/21 13:07 Dose: Not Given Documented by: Potassium Chloride (Potassium Chloride 20 Meq Tab.Er) 40 meq PO ONETIME ONE Stop: 02/15/21 13:01 Last Admin: 02/15/21 13:07 Dose: 40 meq Documented by: - Exam Quality Assessment: Supplemental Oxygen General: Alert, Oriented, Cooperative, No Acute Distress Lungs: Clear to Auscultation, Normal Respiratory Effort Cardiovascular: Regular Rate, Regular Rhythm GI/Abdominal Exam: Normal Bowel Sounds, Soft Extremities: Normal Inspection, Normal Range of Motion - Patient Data Lab Results Last 24 hrs: Laboratory Results - last 24 hr 02/18/21 02/18/21 Range/Units 05:30 05:30 WBC 15.67 H (4.0-11.0) K/uL RBC 3.97 L (4.30-5.90) M/uL Hgb 12.4 (12.0-16.0) g/dL Hct 35.0 L (36.0-46.0) % MCV 88.2 (80.0-98.0) fL MCH 31.2 (27.0-32.0) pg MCHC 35.4 (31.0-37.0) g/dL RDW Std Deviation 48.4 (28.0-62.0) fl RDW Coeff of Ovi 15 (11.0-15.0) % Plt Count 172 (150-400) K/uL MPV 11.70 (7.40-12.00) fL Neut % (Auto) 89.9 H (48.0-80.0) % Lymph % (Auto) 6.9 L (16.0-40.0) % Caroline % (Auto) 3.1 (0.0-15.0) % Eos % (Auto) 0.0 (0.0-7.0) % Baso % (Auto) 0.1 (0.0-1.5) % Neut # (Auto) 14.1 H (1.4-5.7) K/uL Lymph # (Auto) 1.1 (0.6-2.4) K/uL Caroline # (Auto) 0.5 (0.0-0.8) K/uL Eos # (Auto) 0.0 (0.0-0.7) K/uL Baso # (Auto) 0.0 (0.0-0.1) K/uL Nucleated RBC % 0.0 /100WBC Nucleated RBCs # 0 K/uL Sodium 141 (136-145) mmol/L Potassium 4.3 (3.5-5.1) mmol/L Chloride 105 (98-107) mmol/L Carbon Dioxide 30.5 (21.0-32.0) mmol/L BUN 24 H (7.0-18.0) mg/dL Creatinine 1.0 (0.6-1.0) mg/dL Est Cr Clr Drug Dosing 65.81 mL/min Estimated GFR (MDRD) > 60.0 ml/min Glucose 223 H (74-106) mg/dL Calcium 8.9 (8.5-10.1) mg/dL Phosphorus 5.0 H (2.6-4.7) mg/dL Magnesium 1.7 L (1.8-2.4) mg/dL Total Bilirubin 0.2 (0.2-1.0) mg/dL AST 12 L (15-37) IU/L ALT 45 (14-63) IU/L Alkaline Phosphatase 79 (46-116) U/L Total Protein 5.4 L (6.4-8.2) g/dL Albumin 1.9 L (3.4-5.0) g/dL Globulin 3.5 (2.6-4.0) g/dL Albumin/Globulin Ratio 0.5 L (0.9-1.6) Result Diagrams: 02/18/21 05:30 02/18/21 05:30 Samuel Results Last 24 hrs: Microbiology 02/13/21 20:16 Aerobic Blood Culture - Preliminary Blood - Venous - Lab Draw NO GROWTH AFTER 4 DAYS Anaerobic Blood Culture - Final 02/13/21 20:10 Aerobic Blood Culture - Preliminary Blood - Venous NO GROWTH AFTER 4 DAYS Anaerobic Blood Culture - Preliminary NO GROWTH AFTER 4 DAYS Sepsis Event Note - Evaluation Sepsis Screening Result: No Definite Risk - Focused Exam Vital Signs: Vital Signs Temp Pulse Pulse Resp BP BP Pulse Ox 02/18/21 12:00 36.2 C 98 18 109/59 L 93 L 02/18/21 08:00 35.9 C L 95 18 105/53 L 94 L 02/18/21 05:56 85 114/62 02/18/21 03:48 35.7 C L 84 20 121/67 93 L - Problem List & Annotations (1) COVID-19 SNOMED Code(s): 107741240 Code(s): U07.1 - COVID-19 Status: Acute Current Visit: Yes (2) Hypoxia SNOMED Code(s): 172408540 Code(s): R09.02 - HYPOXEMIA Status: Acute Current Visit: Yes (3) Tachycardia SNOMED Code(s): 5047416 Code(s): R00.0 - TACHYCARDIA, UNSPECIFIED Status: Acute Current Visit: Yes (4) Anxiety SNOMED Code(s): 91629323 Code(s): F41.9 - ANXIETY DISORDER, UNSPECIFIED Status: Acute Current Visit: Yes (5) PTSD (post-traumatic stress disorder) SNOMED Code(s): 64558505 Code(s): F43.10 - POST-TRAUMATIC STRESS DISORDER, UNSPECIFIED Status: Acute Current Visit: Yes - Problem List Review Problem List Initiated/Reviewed/Updated: Yes - My Orders Last 24 Hours: My Active Orders 02/18/21 06:00 Metoprolol Tartrate [Lopressor] 100 mg PO Q24H 02/18/21 12:00 Enoxaparin [Lovenox] 40 mg SUBCUT Q24H - Plan Plan:: 45 yo female admitted for concerns of COVID or respiratory tract infection. Leucocytosis noted, no fever, likely due to steroid use cont. on Remdesivir, dexamethasone Duonebs as needed cont IV antibiotics Resume home meds as appropriate Heparin for DVT ppx Oxygen as needed via NC cont IS possible dc today
[2021-02-18] MEDS ORDERED: Magnesium Oxide 400 MG Tab PO ONE (14:00)
[2021-02-18] MEDS: Pregabalin 50 MG Cap PO SCH (21:32)
[2021-02-18] MEDS: cefTRIAXone 1 GM in Premix Bag 1 BAG IV SCH (23:00)
[2021-02-18] MEDS: Azithromycin 250 MG Tab PO SCH (23:23)
[2021-02-19] MEDS: Metoprolol Tartrate 50 MG Tab PO SCH (05:01)
[2021-02-19 05:51] LABS: BLOOD UREA NITROGEN,BUN 21 mg/dL (7.0-18.0); CARBON DIOXIDE,CO2 29.2 mmol/L (21.0-32.0); CHLORIDE,CL 100 mmol/L (98-107); GLUCOSE RANDOM 271 mg/dL (74-106); POTASSIUM,K 4.9 mmol/L (3.5-5.1); SODIUM,NA 134 mmol/L (136-145)
[2021-02-19] MEDS: Albuterol/Ipratropium 4 GM Inhalation Spray INH PRN (08:48)
[2021-02-19] MEDS: ALPRAZolam 0.5 MG Tab PO SCH (09:24)
[2021-02-19] MEDS: DULoxetine 30 MG Cap PO SCH (09:24)
[2021-02-19] MEDS: Dexamethasone 4 MG Tab PO SCH (09:24)
[2021-02-19] MEDS: ARIPiprazole 10 MG Tab PO SCH (09:25)
[2021-02-19] MEDS: REMDESIVIR 100 MG in Sodium Chloride 0.9% 100 ML IV SCH (10:30)
[2021-02-19] MEDS: Acetaminophen 325 MG Tab PO PRN (10:41)
[2021-02-19] MEDS: Enoxaparin 40 MG/0.4 ML Syringe SUBCUT SCH (12:10)
[2021-02-19 12:31] VITALS: BP 104/67; PULSE 90
--- NOTE | 2021-02-19 14:59 | PCM.DCSUM1 ---
Discharge Summary - Hospital Course Diagnosis: Stroke: No - Discharge Data Discharge Disposition: Home, Self-Care 01 Condition: Stable - Referral to Home Health Primary Care Physician: Tomy Harp MD - Discharge Diagnosis/Problem(s) (1) COVID-19 SNOMED Code(s): 176991138 ICD Code: U07.1 - COVID-19 Status: Acute Current Visit: Yes (2) Hypoxia SNOMED Code(s): 148059998 ICD Code: R09.02 - HYPOXEMIA Status: Acute Current Visit: Yes (3) Tachycardia SNOMED Code(s): 7810809 ICD Code: R00.0 - TACHYCARDIA, UNSPECIFIED Status: Acute Current Visit: Yes (4) Anxiety SNOMED Code(s): 74085360 ICD Code: F41.9 - ANXIETY DISORDER, UNSPECIFIED Status: Acute Current Visit: Yes (5) PTSD (post-traumatic stress disorder) SNOMED Code(s): 71892878 ICD Code: F43.10 - POST-TRAUMATIC STRESS DISORDER, UNSPECIFIED Status: Acut e Current Visit: Yes - Patient Summary/Data Consults: Consultations 02/14/21 13:37 Consult to Speech Language Pathology [CPC Evaluation and Treatment] [CONS] Routine - Patient Instructions Diet: Usual Diet as Tolerated Driving: May Drive Today Showering/Bathing: May Shower Notify Provider of: Fever, Increased Pain, Swelling and Redness, Drainage, Nausea and/or Vomiting - Discharge Plan *PRESCRIPTION DRUG MONITORING PROGRAM REVIEWED*: Not Applicable *COPY OF PRESCRIPTION DRUG MONITORING REPORT IN PATIENT SPENCER: Not Applicable Prescriptions/Med Rec: Albuterol/Ipratropium [Combivent Respimat] 1 puff INH Q4H PRN #1 inhaler PRN Reason: Dyspnea dexAMETHasone [Dexamethasone] 6 mg PO DAILY 4 Days #6 tablet levoFLOXacin [Levaquin] 750 mg PO DAILY #4 tab Home Medications: Home Meds Metoprolol Tartrate 100 mg PO QAM 09/20/15 [History] Calcium Carbonate/Vitamin D3 [Calcium 600Mg-D3 400 Unit Sfgl] 1 cap PO DAILY 04/18/20 [History] Iron 65 mg PO DAILY PRN 04/18/20 [History] ALPRAZolam [Alprazolam] 0.5 mg PO BID 02/14/21 [History] ALPRAZolam [Alprazolam] 1 mg PO BEDTIME 02/14/21 [History] ARIPiprazole [Abilify] 5 mg PO DAILY 02/14/21 [History] DULoxetine [Cymbalta] 30 mg PO DAILY 02/14/21 [History] Eszopiclone [Lunesta] 2 mg PO BEDTIME 02/14/21 [History] Liraglutide [Saxenda] 02/14/21 [History] Prazosin HCl [Prazosin] 15 mg PO BEDTIME 02/14/21 [History] Pregabalin 100 mg PO TID 02/14/21 [History] Vortioxetine Hydrobromide [Trintellix] 10 mg PO DAILY 02/14/21 [History] Albuterol/Ipratropium [Combivent Respimat] 1 puff INH Q4H PRN #1 inhaler 02/19/21 [Rx] dexAMETHasone [Dexamethasone] 6 mg PO DAILY 4 Days #6 tablet 02/19/21 [Rx] levoFLOXacin [Levaquin] 750 mg PO DAILY #4 tab 02/19/21 [Rx] Patient Handouts: Ipratropium; Albuterol Inhalation [place] (Combivent Respimat), COVID-19 Frequently Asked Questions, What You Should Know About COVID-19 to Protect Yourself and Others - CDC, COVID-19: How to Protect Yourself and Others - CDC, Levofloxacin tablets, Dexamethasone tablets, Prevent the Spread of COVID- 19 if You Are Sick - [facility] Referrals: Tomy Harp MD [Primary Care Provider] - 03/10/21 9:45 am - Patient Data Vitals - Most Recent: Last Vital Signs Temp 36.4 C 02/19/21 12:13 Pulse 90 02/19/21 12:35 Resp 18 02/19/21 12:35 BP 104/67 02/19/21 12:30 Pulse Ox 95 02/19/21 12:35 Weight - Most Recent: 83.416 kg I&O - Last 24 hours: Intake & Output 02/18/21 02/19/21 02/19/21 22:59 06:59 14:59 Intake Total 1420 2287 Output Total 1999 2100 Balance -580 187 Lab Results - Last 24 hrs: Laboratory Results - last 24 hr 02/19/21 02/19/21 Range/Units 05:15 05:15 WBC 11.94 H (4.0-11.0) K/uL RBC 4.19 L (4.30-5.90) M/uL Hgb 13.0 (12.0-16.0) g/dL Hct 37.0 (36.0-46.0) % MCV 88.3 (80.0-98.0) fL MCH 31.0 (27.0-32.0) pg MCHC 35.1 (31.0-37.0) g/dL RDW Std Deviation 47.9 (28.0-62.0) fl RDW Coeff of Ovi 15 (11.0-15.0) % Plt Count 175 (150-400) K/uL MPV 11.20 (7.40-12.00) fL Neut % (Auto) 87.9 H (48.0-80.0) % Lymph % (Auto) 8.2 L (16.0-40.0) % Levy % (Auto) 3.8 (0.0-15.0) % Eos % (Auto) 0.0 (0.0-7.0) % Baso % (Auto) 0.1 (0.0-1.5) % Neut # (Auto) 10.5 H (1.4-5.7) K/uL Lymph # (Auto) 1.0 (0.6-2.4) K/uL Levy # (Auto) 0.5 (0.0-0.8) K/uL Eos # (Auto) 0.0 (0.0-0.7) K/uL Baso # (Auto) 0.0 (0.0-0.1) K/uL Nucleated RBC % 0.0 /100WBC Nucleated RBCs # 0 K/uL Sodium 134 L (136-145) mmol/L Potassium 4.9 (3.5-5.1) mmol/L Chloride 100 (98-107) mmol/L Carbon Dioxide 29.2 (21.0-32.0) mmol/L BUN 21 H (7.0-18.0) mg/dL Creatinine 1.1 H (0.6-1.0) mg/dL Est Cr Clr Drug Dosing 59.82 mL/min Estimated GFR (MDRD) > 60.0 ml/min Glucose 271 H (74-106) mg/dL Calcium 8.4 L (8.5-10.1) mg/dL Phosphorus 4.6 (2.6-4.7) mg/dL Magnesium 2.0 (1.8-2.4) mg/dL Total Bilirubin 0.3 (0.2-1.0) mg/dL AST 11 L (15-37) IU/L ALT 45 (14-63) IU/L Alkaline Phosphatase 84 (46-116) U/L Total Protein 5.9 L (6.4-8.2) g/dL Albumin 2.2 L (3.4-5.0) g/dL Globulin 3.7 (2.6-4.0) g/dL Albumin/Globulin Ratio 0.6 L (0.9-1.6) [facility] Results - Last 24 hrs: Microbiology 02/13/21 20:16 Aerobic Blood Culture - Final Blood - Venous - Lab Draw NO GROWTH AFTER 5 DAYS Anaerobic Blood Culture - Final 02/13/21 20:10 Aerobic Blood Culture - Final Blood - Venous NO GROWTH AFTER 5 DAYS Anaerobic Blood Culture - Final NO GROWTH AFTER 5 DAYS Med Orders - Current: Current Medications Acetaminophen (Acetaminophen 325 Mg Tab) 650 mg PO Q6H PRN PRN Reason: Pain Last Admin: 02/19/21 10:41 Dose: 650 mg Documented by: Albuterol/Ipratropium (Albuterol/Ipratropium 4 Gm Inhalation [place]) 0 gm INH Q4H PRN PRN Reason: Dyspnea Last Admin: 02/19/21 08:48 Dose: 1 puff Documented by: Alprazolam (Alprazolam 0.5 Mg Tab) 0.5 mg PO BID [facility] Last Admin: 02/19/21 09:24 Dose: 0.5 mg Documented by: Aripiprazole (Aripiprazole 10 Mg Tab) 5 mg PO DAILY [facility] Last Admin: 02/19/21 09:25 Dose: 5 mg Documented by: Azithromycin (Azithromycin 250 Mg Tab) 500 mg PO Q24H [facility] Last Admin: 02/18/21 23:23 Dose: 500 mg Documented by: Dexamethasone (Dexamethasone 4 Mg Tab) 6 mg PO DAILY [facility] Last Admin: 02/19/21 09:24 Dose: 6 mg Documented by: Duloxetine HCl (Duloxetine 30 Mg Cap) 30 mg PO DAILY [facility] Last Admin: 02/19/21 09:24 Dose: 30 mg Documented by: Enoxaparin Sodium (Enoxaparin 40 Mg/0.4 Ml Syringe) 40 mg SUBCUT Q24H [facility] Last Admin: 02/19/21 12:10 Dose: 40 mg Documented by: Ceftriaxone Sodium/Dextrose 1 (gm/ Premix) 50 mls @ 100 mls/hr IV Q24H [facility] Last Admin: 02/18/21 23:00 Dose: 100 mls/hr Documented by: Metoprolol Tartrate (Metoprolol Tartrate 50 Mg Tab) 100 mg PO Q24H [facility] Last Admin: 02/19/21 05:01 Dose: 100 mg Documented by: Prazosin 5mg 3 each PO BEDTIME [facility] Last Admin: 02/18/21 21:32 Dose: 3 each Documented by: Vortioxetine Hydrobromide [ Trintellix] 10 Mg 1 each PO DAILY [facility] Last Admin: 02/19/21 10:22 Dose: 1 each Documented by: Eszopiclone [Lunesta (] 2 Mg) 1 each PO BEDTIME PRN PRN Reason: INSOMNIA Pregabalin (Pregabalin 50 Mg Cap) 50 mg PO BEDTIME [facility] Last Admin: 02/18/21 21:32 Dose: 50 mg Documented by: Sodium Chloride (Sodium Chloride 0.9% 10 Ml Syringe) 10 ml FLUSH ASDIRECTED PRN PRN Reason: Keep Vein Open Last Admin: 02/16/21 08:26 Dose: 10 ml Documented by: Sodium Chloride (Sodium Chloride 0.9% 2.5 Ml Syringe) 2.5 ml FLUSH ASDIRECTED PRN PRN Reason: Keep Vein Open Discontinued Medications Azithromycin (Azithromycin 250 Mg Tab) 500 mg PO Q24H STA Stop: 02/13/21 22:59 Last Admin: 02/13/21 23:43 Dose: 500 mg Documented by: Dexamethasone (Dexamethasone 4 Mg Tab) 6 mg PO Q24H [facility] Diphenhydramine HCl (Diphenhydramine 50 Mg/Ml Sdv) 50 mg IVPUSH ONETIME ONE Stop: 02/13/21 20:08 Last Admin: 02/13/21 20:18 Dose: 50 mg Documented by: Eszopiclone (Eszopiclone 1 Mg Tab) 2 mg PO BEDTIME [facility] Last Admin: 02/15/21 22:20 Dose: Not Given Documented by: Heparin Sodium (Porcine) (Heparin Sodium 5,000 Units/Ml Vial) 5,000 units SUBCUT Q8H [facility] Last Admin: 02/18/21 03:50 Dose: 5,000 units Documented by: Sodium Chloride (Normal Saline) 1,000 mls @ 999 mls/hr IV .BOLUS ONE Stop: 02/13/21 21:11 Last Admin: 02/13/21 20:17 Dose: 999 mls/hr Documented by: Sodium Chloride (Normal Saline) 1,000 mls @ 999 mls/hr IV STAT ONE Stop: 02/13/21 21:20 Last Admin: 02/13/21 21:26 Dose: 999 mls/hr Documented by: Sodium Chloride (Normal Saline) 500 mls @ 999 mls/hr IV .BOLUS [facility] Last Admin: 02/13/21 22:49 Dose: 999 mls/hr Documented by: Ceftriaxone Sodium 1 gm/ (Sodium Chloride) 50 mls @ 100 mls/hr IV ONETIME STA Stop: 02/13/21 23:26 Last Admin: 02/13/21 23:44 Dose: Not Given Documented by: Ceftriaxone Sodium/Dextrose 1 (gm/ Premix) 50 mls @ 100 mls/hr IV ONETIME ONE Stop: 02/14/21 00:05 Last Admin: 02/13/21 23:43 Dose: 100 mls/hr Documented by: Sodium Chloride (Normal Saline) 1,000 mls @ 999 mls/hr IV .Bolus ONE Stop: 02/14/21 13:00 Last Infusion: 02/14/21 13:16 Dose: 999 mls/hr Documented by: Lactated Ringer's (Ringers, Lactated) 500 mls @ 125 mls/hr IV ASDIRECTED [facility] Last Admin: 02/15/21 01:31 Dose: 125 mls/hr Documented by: Remdesivir 200 mg/ Sodium (Chloride) 250 mls @ 250 mls/hr IV ONETIME ONE Stop: 02/15/21 10:44 Last Admin: 02/15/21 12:47 Dose: 250 mls/hr Documented by: Remdesivir 100 mg/ Sodium (Chloride) 100 mls @ 100 mls/hr IV Q24H [facility] Stop: 02/19/21 10:29 Last Admin: 02/19/21 10:30 Dose: 100 mls/hr Documented by: Iopamidol (Iopamidol 755 Mg/Ml 500 Ml Multipack Bottle) 100 ml IVPUSH ONETIME ONE Stop: 02/14/21 13:02 Last Admin: 02/14/21 13:01 Dose: 100 ml Documented by: Magnesium Oxide (Magnesium Oxide 400 Mg Tab) 800 mg PO ONETIME ONE Stop: 02/18/21 14:01 Last Admin: 02/18/21 14:27 Dose: 800 mg Documented by: Methylprednisolone Sodium Succinate (Methylprednisolone Sodium Succinate 125 Mg/2 Ml Sdv) Confirm Administered Dose 125 mg .ROUTE .STK-MED ONE Stop: 02/13/21 19:46 Last Admin: 02/13/21 19:53 Dose: Not Given Documented by: Methylprednisolone Sodium Succinate (Methylprednisolone Sodium Succinate 125 Mg/2 Ml Sdv) 125 mg IVPUSH ONETIME ONE Stop: 02/13/21 19:53 Last Admin: 02/13/21 19:53 Dose: 125 mg Documented by: Metoclopramide HCl (Metoclopramide 10 Mg/2 Ml Sdv) 10 mg IVPUSH ONETIME ONE Stop: 02/13/21 20:10 Last Admin: 02/13/21 20:23 Dose: 10 mg Documented by: Metoprolol Tartrate (Metoprolol Tartrate 50 Mg Tab) 100 mg PO QAM [facility] Last Admin: 02/15/21 09:00 Dose: 100 mg Documented by: Metoprolol Tartrate (Metoprolol Tartrate 50 Mg Tab) 100 mg PO ONETIME ONE Stop: 02/15/21 03:32 Last Admin: 02/15/21 03:39 Dose: 100 mg Documented by: Metoprolol Tartrate (Metoprolol Tartrate 50 Mg Tab) 50 mg PO DAILY [facility] Last Admin: 02/16/21 08:25 Dose: 50 mg Documented by: Metoprolol Tartrate (Metoprolol Tartrate 50 Mg Tab) 50 mg PO ONETIME ONE Stop: 02/16/21 09:21 Last Admin: 02/16/21 09:30 Dose: 50 mg Documented by: Metoprolol Tartrate (Metoprolol Tartrate 50 Mg Tab) 100 mg PO DAILY [facility] Last Admin: 02/17/21 09:15 Dose: 100 mg Documented by: Potassium Chloride (Potassium Chloride 20 Meq Tab.Er) 40 meq PO ONETIME ONE Stop: 02/15/21 09:46 Last Admin: 02/15/21 13:07 Dose: Not Given Documented by: Potassium Chloride (Potassium Chloride 20 Meq Tab.Er) 40 meq PO ONETIME ONE Stop: 02/15/21 13:01 Last Admin: 02/15/21 13:07 Dose: 40 meq Documented by:
== END 2021-02-19 14:05 | disposition home or self-care (01) | DRG 137 ==
LOC: MW.ED 19:22 → MW.MS 23:02
PROVIDERS: ADMIT Internal Medicine; ATTEND Internal Medicine
PROC: XW033E5 Introduction of Remdesivir Anti-infective into Peripheral Vein, Percutaneous Approach, New Technology Group 5 (ICD-10-PCS; principal; 2021-02-13)
DX: U07.1 COVID-19 (principal); F41.9 Anxiety disorder, unspecified; F43.10 Post-traumatic stress disorder, unspecified; Z79.899 Other long term (current) drug therapy; F32.9 Major depressive disorder, single episode, unspecified; Z91.048 Other nonmedicinal substance allergy status; Z88.6 Allergy status to analgesic agent; I10 Essential (primary) hypertension; G89.29 Other chronic pain; M54.2 Cervicalgia; Z98.1 Arthrodesis status
CPT/HCPCS: 0240U; 36415; 71045; 71045-26; 71275; 71275-26; 80048; 80053; 81003; 83605; 83735; 84100; 85025; 87040; 92610-GN; 96374; 96375; 99284; 99285-25; A9270-GY; J0696; J1200; J1644; J1650; J2765; J2930; J7030; J7040; J7050; J7120; J8540; Q9967